=== PATIENT | male | born 1950 | race Caucasian/White ===

== ENCOUNTER 2023-07-16 14:58 | Outpatient (CLI) | payer MEDICARE, SELFPAY ==
[2023-07-16 15:06] VITALS: BMI 25.9
--- NOTE | 2023-07-16 15:06 | PC.NURSE ---
1504-collected labs via venipuncture stick with butterfly needle in left ac.
[2023-07-16 15:22] LABS: Basophils % 0.6 % (0.1-2.0); Eosinophils # 0.3 K/mm3 (0.0-0.4); Eosinophils % 4.7 % (0.1-12.0); Hematocrit 47.4 % (42.0-52.0); Hemoglobin 16.5 g/dL (14.1-18.0); Lymphocytes # 1.6 K/mm3 (0.7-4.5); Lymphocytes % 23.3 % (10-50); Mean Corpuscular HGB Conc 34.9 g/dL (31.8-35.4); Mean Corpuscular Hemoglobin 33.3 pg (27.0-31.2); Mean Corpuscular Volume 95.4 fl (80-94); Mean Platelet Volume 8.2 fl (7.4-10.4); Monocytes # 0.4 K/mm3 (0.1-1.0); Monocytes % 5.5 % (1.7-9.3); Neutrophils # 4.6 K/mm3 (1.8-7.8); Neutrophils % 65.9 % (37.0-80.0); Platelet Count 204 K/mm3 (142-424); Red Blood Count 4.96 M/mm3 (4.60-6.20); Red Cell Distribution Width 13.9 % (11.5-17.5)
[2023-07-16 15:29] LABS: Chloride 103 mmol/L (98-107); Potassium 3.6 mmoL/L (3.5-5.1); Sodium 139 mmol/L (136-145)
[2023-07-16 15:31] LABS: Blood Urea Nitrogen 25 mg/dl (9-20); Creatinine Clearance Estimated 80 mL/min (50-200); Estimated Glomerular Filt Rate 66 ml/min (>60); GFR (African American) 80 ML/MIN (>60)
[2023-07-16 15:32] LABS: Alanine Aminotransferase 30 U/L (12-78); Albumin Level 4.9 g/dl (3.5-5.0); Albumin/Globulin Ratio 1.9 (1.1-1.8); Alkaline Phosphatase 62 U/L (38-126); Anion Gap 9.6 mEq/L (5-15); Aspartate Amino Transferase 37 U/L (17-59); Bilirubin,Total 0.7 mg/dl (0.2-1.3); Calcium 9.7 mg/dl (8.4-10.2); Carbon Dioxide 30 mmol/L (22.0-30.0); Globulin 2.6 g/dL (1.3-3.2); Glucose 148 mg/dl (74-100); Total Protein,Serum 7.5 g/dl (6.3-8.2)
[2023-07-16 15:43] LABS: Lactate Dehydrogenase 227 U/L (313-618)
== END 2023-07-16 15:06 | disposition home or self-care (01) ==
LOC: LAB 15:01 → INF 15:04
PROVIDERS: PCP Counselor Professional; Visit Provider Internal Medicine Medical Oncology
DX: C82.90 Follicular lymphoma, unspecified, unspecified site (principal)
CPT/HCPCS: 36415; 80053; 83615; 85025

== ENCOUNTER 2023-10-15 13:57 | Outpatient (CLI) | payer MEDICARE, SELFPAY ==
[2023-10-15 14:06] VITALS: BMI 25.8
[2023-10-15 14:19] LABS: Basophils # 0.1 K/mm3 (0-0.2); Basophils % 0.9 % (0.1-2.0); Eosinophils # 0.3 K/mm3 (0.0-0.4); Eosinophils % 4.2 % (0.1-12.0); Hematocrit 46.6 % (42.0-52.0); Hemoglobin 15.3 g/dL (14.1-18.0); Lymphocytes # 1.6 K/mm3 (0.7-4.5); Lymphocytes % 20.3 % (10-50); Mean Corpuscular HGB Conc 32.7 g/dL (31.8-35.4); Mean Corpuscular Hemoglobin 32.7 pg (27.0-31.2); Mean Corpuscular Volume 99.9 fl (80-94); Mean Platelet Volume 8.6 fl (7.4-10.4); Monocytes # 0.6 K/mm3 (0.1-1.0); Monocytes % 7.8 % (1.7-9.3); Neutrophils # 5.1 K/mm3 (1.8-7.8); Neutrophils % 66.8 % (37.0-80.0); Platelet Count 193 K/mm3 (142-424); Red Blood Count 4.67 M/mm3 (4.60-6.20); Red Cell Distribution Width 13.8 % (11.5-17.5); White Blood Count 7.6 K/mm3 (4.8-10.8)
[2023-10-15 14:23] LABS: Chloride 104 mmol/L (98-107); Potassium 4.1 mmoL/L (3.5-5.1); Sodium 138 mmol/L (136-145)
[2023-10-15 14:26] LABS: Alanine Aminotransferase 24 U/L (12-78); Albumin Level 4.2 g/dl (3.5-5.0); Albumin/Globulin Ratio 1.9 (1.1-1.8); Alkaline Phosphatase 66 U/L (38-126); Anion Gap 7.1 mEq/L (5-15); Aspartate Amino Transferase 37 U/L (17-59); Bilirubin,Total 0.6 mg/dl (0.2-1.3); Blood Urea Nitrogen 26 mg/dl (9-20); Calcium 10.1 mg/dl (8.4-10.2); Carbon Dioxide 31 mmol/L (22.0-30.0); Creatinine Clearance Estimated 79 mL/min (50-200); Estimated Glomerular Filt Rate 66 ml/min (>60); GFR (African American) 80 ML/MIN (>60); Globulin 2.2 g/dL (1.3-3.2); Glucose 147 mg/dl (74-100); Total Protein,Serum 6.4 g/dl (6.3-8.2)
[2023-10-15 15:35] LABS: Lactate Dehydrogenase 218 U/L (313-618)
== END 2023-10-15 14:10 | disposition home or self-care (01) ==
LOC: INF 13:58
PROVIDERS: PCP Counselor Professional; Visit Provider Internal Medicine Medical Oncology
DX: C82.90 Follicular lymphoma, unspecified, unspecified site (principal)
CPT/HCPCS: 36415; 80053; 83615; 85025

== ENCOUNTER 2024-05-20 13:09 | Outpatient (CLI) | payer MEDICARE, SELFPAY ==
--- NOTE | 2024-05-20 13:24 | PC.NURSE ---
1324-collected labs via venipuncture stick in left ac with butterfly needle; pt to appt.
[2024-05-20 14:46] LABS: Basophils # 0.1 K/mm3 (0-0.2); Basophils % 0.7 % (0.1-2.0); Eosinophils # 0.2 K/mm3 (0.0-0.4); Hematocrit 43.1 % (42.0-52.0); Hemoglobin 14.5 g/dL (14.1-18.0); Lymphocytes # 1.3 K/mm3 (0.7-4.5); Lymphocytes % 17.2 % (10-50); Mean Corpuscular HGB Conc 33.6 g/dL (31.8-35.4); Mean Corpuscular Hemoglobin 31.4 pg (27.0-31.2); Mean Corpuscular Volume 93.5 fl (80-94); Mean Platelet Volume 8.1 fl (7.4-10.4); Monocytes # 0.5 K/mm3 (0.1-1.0); Monocytes % 6.7 % (1.7-9.3); Neutrophils # 5.5 K/mm3 (1.8-7.8); Neutrophils % 72.3 % (37.0-80.0); Platelet Count 272 K/mm3 (142-424); Red Blood Count 4.62 M/mm3 (4.60-6.20); White Blood Count 7.6 K/mm3 (4.8-10.8)
[2024-05-20 14:54] LABS: Alanine Aminotransferase 35 U/L (12-78); Albumin Level 4.1 g/dl (3.5-5.0); Albumin/Globulin Ratio 2.1 (1.1-1.8); Alkaline Phosphatase 64 U/L (38-126); Anion Gap 4.8 mEq/L (5-15); Aspartate Amino Transferase 39 U/L (17-59); Bilirubin,Total 0.6 mg/dl (0.2-1.3); Blood Urea Nitrogen 24 mg/dl (9-20); Calcium 9.8 mg/dl (8.4-10.2); Carbon Dioxide 28 mmol/L (22.0-30.0); Chloride 106 mmol/L (98-107); Estimated Glomerular Filt Rate 66 ml/min (>60); GFR (African American) 80 ML/MIN (>60); Glucose 126 mg/dl (74-100); Lactate Dehydrogenase 267 U/L (313-618); Potassium 3.8 mmoL/L (3.5-5.1); Sodium 135 mmol/L (136-145); Total Protein,Serum 6.1 g/dl (6.3-8.2)
== END 2024-05-20 13:24 | disposition home or self-care (01) ==
LOC: LAB 13:11 → INF 13:13
PROVIDERS: PCP Counselor Professional; Visit Provider Internal Medicine Medical Oncology
DX: C82.90 Follicular lymphoma, unspecified, unspecified site (principal)
CPT/HCPCS: 36415; 80053; 83615; 85025

== ENCOUNTER 2024-11-18 10:13 | Outpatient (CLI) | payer MEDICARE, SELFPAY ==
--- NOTE | 2024-11-18 10:14 | CT_ITS ---
FINAL REPORT TECHNIQUE: Routine axial images were obtained from the lung apices to below the diaphragm following IV contrast administration. Individualized dose reduction techniques using automated exposure control or adjustment of the mA and/or kV according to the patient size were employed. CLINICAL HISTORY: Follicular lymphoma, unspecified COMPARISON: None FINDINGS: Enlarged left axillary lymph nodes are present, more numerous than expected. Some of these lymph nodes are rounded, measuring up to 1.9 cm in size. No mediastinal or hilar adenopathy is identified. No confluent infiltrates are noted, and there is no evidence of pleural or pericardial effusion. There is a small nodule present in the lingula, measuring 5 mm in size, best seen on image #43 of series 9. There is also a nodule in the right middle lobe, also measuring 5 mm in size, best seen on image 59 of series 9. IMPRESSION: Left axillary adenopathy, measuring up to 1.9 cm in size. There are two small 5 mm nodules are present in the lingula and right middle lobe, of uncertain chronicity. Would suggest a 3 to 6-month follow-up CT to evaluate stability. Reviewed, Interpreted and Dictated by Riley Lowe MD Transcribed by Marsha Duque Authenticated and [facility]
--- NOTE | 2024-11-18 10:14 | CT_ITS ---
FINAL REPORT TECHNIQUE: After the administration of oral and intravenous contrast, axial images were obtained through the abdomen and pelvis by computed tomography. The study was performed with techniques to keep radiation dose as low as reasonably achievable, (ALARA). Individual dose reduction techniques using automated exposure control or adjustment of mA and/or kV according to the patient's size were employed. CLINICAL HISTORY: Follicular lymphoma, unspecified COMPARISON: None FINDINGS: CT ABDOMEN PELVIS WITH CONTRAST: Abdomen: The liver parenchyma is homogeneous. The gallbladder is present, and contains a small gallstone. Numerous surgical clips are present in the left upper quadrant. The pancreas and adrenals appear unremarkable. Multiple calcified splenic granulomas are present. The left kidney is mildly atrophic. The aorta is normal in caliber. There is no free fluid or adenopathy. Pelvis: The appendix is not identified. There is a rind of soft tissue surrounding the infrarenal abdominal aorta extending into the pelvis surrounding the iliac vessels. This is best seen on axial images #30 through 54. The urinary bladder is unremarkable. There is no free fluid or adenopathy. IMPRESSION: There is a rind of soft tissue surrounding the infrarenal abdominal aorta, extending inferiorly surrounding the iliac vessels as well. In this patient with a history of lymphoma, this may be secondary to prior treated adenopathy. PET scan is better suited to assess active disease if clinically indicated. Reviewed, Interpreted and Dictated by Riley Lowe MD Transcribed by Marsha Duque Authenticated and [facility]
--- OUTSIDE RECORDS SUMMARY | 2024-11-18 10:15 | XMS_ITS | Clinical Summary ---
Author Organization [facility] , [facility] Address [address] [place] [address] Phone Care Team Providers Care High [employer] Academic Coach Name Role Phone Murali ARELLANO, Armaan Unavailable [phone] Jose COLÓN, Anabel Unavailable [phone] Reason for Visit and Chief Complaint MRI Problems Includes: Problems addressed during this encounter and other active Problems All Visits Onset Date Resolved Date Provider Condition S tatus Lower Back Pain Radiating 02/12/2024 Emma Marcus MD Active Last Documented On 4 12:01PM ; [facility] Plan of Treatment Pending Tests Order Diagnosis Results Due Ordering P rovider Radiology - MRI MRI Lumbar Spine Low back pain, unspecified 02/26/24 Emma Marcus MD Last Documented On 4 7:32AM ; [facility] Assessments Includes: Assessments from this encounter No Assessments Recorded Medical Equipment - Implanted Devices Includes: Current Devices No Medical Equipment Recorded Medications Includes: Medications discussed during this encounter and other current Medications Current Medications (continue as prescribed) hydroCHLOROthiazide 25 MG Oral Tablet 08/21/2023 Pro vider: Diagnosis: Last Documented On 4 1:30PM By Rishi Yepez [facility], [facility] Omeprazole 40 MG Oral Capsule Delayed Release 08/21/19 Provider: Diagnosis: Last Documented On 4 1:30PM By Rishi Baez ; [facility], [facility] Fluticasone Propionate 50 MC G/ACT Nasal Suspension 07/31/2023 Provider: FEDERICO TORIBIO III, MD Diagnosis: Last Documented On 4 1:30PM By Rishi Baez ; [facility], [facility] Ciclopirox 8% External Solution 07/15/2023 Provider: Diagnosis: Last Documented On 4 1:30PM By Rishi [facility], [facility] Medications Administered Includes: Administered Medications from this encounter No Administered Medications Recorded Results Includes: Results discussed during this encounter No Results Recorded For Specified Dates History of Present Illness Includes: History of Present Illness from this encounter No History of Present Illness Recorded Social History No Social History Recorded - Smoking Status Unknown Medical History Includes: Medical History addressed during this encounter No Medical History Recorded Family History Includes: Family History addressed during this encounter No Family History Recorded Review of Systems Includes: Review of Systems from this encounter No Review of Systems Recorded Mental Status Includes: Mental Status from this encounter No Mental Status Recorded Functional Status Includes: Functional Status from this encounter No Functional Status Recorded Physical Exam Includes: Physical Exam from this encounter No Physical Exam Recorded Allergies Includes: Active Allergies No Known Allergies Insurance Includes: Active Insurance Policies Plan Name Member ID Group # Subscriber Relationship Effect scott Dates 1 - [facility] /MEDICARE [id number] Jovanny Rose Self Clinical Notes Includes: Clinical Notes from this encounter No Clinical Notes Recorded
--- OUTSIDE RECORDS SUMMARY | 2024-11-18 10:15 | XMS_ITS | Clinical Summary ---
Author Organization [facility] , [facility] Address [address] [place] [address] Phone Care Team Providers Care Combine Driver Name Role Phone Murali ARELLANO, Armaan Unavailable [phone] Jose COLÓN, Anabel Unavailable [phone] Reason for Visit and Chief Complaint The Chief Complaint is: Right hip pain Problems Includes: Problems addressed during this encounter and other active Problems All Visits Onset Date Resolved Date Provider Condition S tatus Lower Back Pain Radiating 02/12/2024 Emma Marcus MD Active Last Documented On 12:01PM ; [facility] Plan of Treatment - Patient screened for future fall risk: documentation of any fall with injury in past year - Last Documented On 06/12/2024 12:44PM ; [facility] Fall Risk Assessment: This patient has been identified as a fall risk. Balance/gait along with postural blood pressure, vision and home fall hazards have been assessed. Medications have been reviewed, and recommendations made with regard to contributing factors for future falls. Plan of care: Consideration of vitamin D supplementation along with balance and strength training with consideration for formal physical therapy has been discussed with the patient. - Last Documented On 06/12/2024 12:44PM ; [facility] I have reviewed the radiographs and physical exam findings with the patient and his at today's appointment. We discussed that I believe his symptoms are coming from a source within his low back. We will order his an MRI of his lumbar spine and have him follow-up with Dr. Corazon Gee. - Last Documented On 06/12/2024 12:44PM ; [facility] Instructions to patient Intervention and counseling on cessation of tobacco use Last Documented On 4:21PM ; [facility], [facility] Assessments Includes: Assessments from this encounter No Assessments Recorded Instructions Includes: Instructions from this encounter Instructions to patient Intervention and counseling on cessation of tobacco use Last Documented On 4 4:21PM ; [facility] Medical Equipment - Implanted Devices Includes: Current Devices No Medical Equipment Recorded Medications Includes: Medications discussed during this encounter and other current Medications Current Medications (continue as prescribed) hydroCHLOROthiazide 25 MG Oral Tablet 08/21/2023 Pro vider: Diagnosis: Last Documented On 4 1:30PM By Rishi Baez ; [facility] Omeprazole 40 MG Oral Capsule Delayed Release 08/21/19 Provider: Diagnosis: Last Documented On 4 1:30PM By Rishi Baez ; [facility], [facility] Fluticasone Propionate 50 MC G/ACT Nasal Suspension 07/31/2023 Provider: FEDERICO TORIBIO III, MD Diagnosis: Last Documented On 4 1:30PM By Rishi Baez ; [facility] Ciclopirox 8% External Solution 07/15/2023 Provider: Diagnosis: Last Documented On 4 1:30PM By Rishi Baez ; [facility], [facility] Medications Administered Includes: Administered Medications from this encounter No Administered Medications Recorded Results Includes: Results discussed during this encounter No Results Recorded For Specified Dates History of Present Illness Includes: History of Present Illness from this encounter ALIRIO Rose is a 73 year old male. - Allergy list reviewed - Problem list reviewed - Medication list reviewed - Previous history of new onset pain Injury is not work related or an automotive accident - Patient pain level from 1-10: 10 - - Review of medications documented He presents today for evaluation of right posterior hip pain. Over the last several days, he has been remodeling a house and has had significant increase of his activity. He has been up and down on ladders. he denies any direct injury, trauma, or fall contributing to his symptoms. The pain is radiating from the posterior aspect of his hip down to his leg. It is not associated with any numbness or tingling. No recent change in his bowel or bladder patterns. No saddle anesthesia. He has tried taking Tylenol and anti-inflammatories with some mild improvement of his symptoms. He presents today to discuss treatment options. He denies any pain in his groin. He was evaluated back in October with similar symptoms by Dr. Carrino who recommended follow-up with Dr. Mcconnell as he felt a large majority of his symptoms were coming from a source within his low back. He was evaluated by Dr. Mcconnell back in February and all of his radicular pain had resolved. Should his pain return, he did want to order an MRI. He has known degenerative changes of his low back. He does report some back pain at today's appointment. Social History Description Last Updated Tobacco use 06/11/2024 Last Documented On 4 12:44PM ; [facility] Smoking Status Unknown Procedures and Surgical History Includes: Procedures from this encounter Procedures Code Diagnosis Performing Provider Service Location Service Date PELVIS w/ 2-3 VIEW HIP (RIGHT) 64803 Pain in right hip Jag Gage MD [facility] 06/11/2024 Last Documented On 4 2:57PM ; [facility] X-RAY EXAM OF LOWER SPINE 2-3 VIEWS LIMITED 34379 Other intervertebral disc degeneration, lumbar region with d Jag Gage MD [facility] 06/11/2024 Last Documented On 4 2:57PM ; [facility] intervention and counseling on cessation of toba account services analyst use 4000F Last Documented On 4 4:21PM ; [facility] use of tobacco assessment performed 1000F Last Documented On 4 4:21PM ; [facility] patient screened for future fall risk: documentation of any fall with injury in past year 1100F Last Documented On 4 4:21PM ; [facility] review of medications documented 1160F Last Documented On 4 4:21PM ; [facility] Medical History Includes: Medical History addressed during [...] Exam Includes: Physical Exam from this encounter Allergies Includes: Active Allergies No Known Allergies Encounters Encounter Provider Location Date Check-In Time Check-Out Time Diagnosis Walk In New Patient Patti Blanca Craft PA-C [facility] 06/11/20 24 3:36PM 4:41PM Insurance Includes: Active Insurance Policies Plan Name Member ID Group # Subscriber Relationship Effect scott Dates 1 - [facility] /MEDICARE [id number] Jovanny Rose Self Clinical Notes Includes: Clinical Notes from this encounter * Progress note Date Encounter Last Documented by 06/11/2024 Walk In New Patient Last martha ornelas on 06/12/2024; 12:44 PM, Patti Craft PA-C; [facility] Active Problems & Conditions - Lower Back Pain Radiating Chief Complaint The Chief Complaint is: Right hip pain. Referred Here Referred by. History of Present Illness Jovanny Rose is a 73 year old male. - Allergy list reviewed - Problem list reviewed - Medication list reviewed - Previous history of new onset pain Injury is not work related or an automotive accident - Patient pain level from 1-10: 10 - - Review of medications documented He presents today for evaluation of right posterior hip pain. Over the last several days, he has been remodeling a house and has had significant increase of his activity. He has been up and down on ladders. he denies any direct injury, trauma, or fall contributing to his symptoms. The pain is radiating from the posterior aspect of his hip down to his leg. It is not associated with any numbness or tingling. No recent change in his bowel or bladder patterns. No saddle anesthesia. He has tried taking Tylenol and anti-inflammatories with some mild improvement of his symptoms. He presents today to discuss treatment options. He denies any pain in his groin. He was evaluated back in October with similar symptoms by Dr. Carrion who recommended follow-up with Dr. Mcconnell as he felt a large majority of his symptoms were coming from a source within his low back. He was evaluated by Dr. Mcconnell back in February and all of his radicular pain had resolved. Should his pain return, he did want to order an MRI. He has known degenerative changes of his low back. He does report some back pain at today's appointment. Current Medication - Ciclopirox 8% External Solution 30 days, 0 refills - Fluticasone Propionate 50 MCG/ACT Nasal Suspension 60 days, 0 refills - hydroCHLOROthiazide 25 MG Oral Tablet 90 days, 0 refills - Omeprazole 40 MG Oral Capsule Delayed Release 90 days, 0 refills Social History Tobacco use: Tobacco use. Allergies - No Known Allergies Physical Findings He is well-dressed and well-groomed. He has normal mood and affect. He has a stooped gait. Leg lengths are equal. The skin is intact. No increased redness or heat. No effusion. No bony deformity. There is no tenderness about the hips. No tenderness over the SI joints. No tenderness over the lumbar spine. Right hip is limited internal and external rotation without pain. Normal motor and sensory. Normal neurovascular status. SLR: Positive on the right side negative on the left. Tests Three-view radiographs of the right hip show some narrowing throughout the joint space. The joint spaces overall well-preserved. No acute osseous abnormality. No acute interval change compared to radiographs taken in October 2023. Three-view radiographs of the lumbar spine show multilevel degenerative disc disease And degenerative scoliosis. No acute osseous abnormality or interval change compared to radiographs taken in February 2024. Therapy - Intervention and counseling on cessation of tobacco use. Counseling/Education - Tobacco non-user - Use of tobacco assessment performed Plan - Patient screened for future fall risk: documentation of any fall with injury in past year Fall Risk Assessment: This patient has been identified as a fall risk. Balance/gait along with postural blood pressure, vision and home fall hazards have been assessed. Medications have been reviewed, and recommendations made with regard to contributing factors for future falls. Plan of care: Consideration of vitamin D supplementation along with balance and strength training with consideration for formal physical therapy has been discussed with the patient. I have reviewed the radiographs and physical exam findings with the patient and his at today's appointment. We discussed that I believe his symptoms are coming from a source within his low back. We will order his an MRI of his lumbar spine and have him follow-up with Dr. Corazon Gee. Notes This dictation was done with voice recognition software and may contain errors and omissions. Practice Management Use of tobacco assessment performed and patient screened for future fall risk documentation of any fall with injury in past year Review of medications documented. Care Team - Anabel Garcia PA-C
--- OUTSIDE RECORDS SUMMARY | 2024-11-18 10:15 | XMS_ITS ---
Care Plan - [facility], [facility] Created on: November 18, 2024 Rose Jovanny Go : 1950 Sex: Male Author Organization [facility] , [facility] Address [address] [place] [address] Phone Care Team Providers Care [employer] [place] Name Role Phone Murali ARELLANO, Armaan Unavailable [phone] Jose COLÓN, Anabel Unavailable [phone]
--- OUTSIDE RECORDS SUMMARY | 2024-11-18 10:16 | XMS_ITS | Clinical Summary ---
Author Organization [facility] Address [address] [place] [address] Phone Care Team Providers Care Machine Repair Person Name Role Phone Murali ARELLANO, Armaan Unavailable [phone] Jose COLÓN, Anabel Unavailable [phone] Reason for Visit and Chief Complaint The Chief Complaint is: Lumbar radiculopathy Problems Includes: Problems addressed during this encounter and other active Problems Current Visit Onset Date Resolved Date Provider Conditio n Status Lower Back Pain Radiating 02/12/2024 Emma Marcus MD Active Last Documented On 12:01PM ; [facility] Plan of Treatment - Patient screened for future fall risk: documentation of any fall with injury in past year - Last Documented On 02/24/2024 7:32AM ; [facility] Pending Tests Order Diagnosis Results Due Ordering P rovider Radiology - MRI MRI Lumbar Spine Low back pain, unspecified 02/26/24 Emma Marcus MD Last Documented On 4 7:32AM ; [facility] Instructions to patient Intervention and counseling on cessation of tobacco use Last Documented On 4 11:49AM ; [facility] Lose weight Last Documented On 4 11:49AM ; [facility] Assessments Includes: Assessments from this encounter Findings - Overweight - Last Documented On 02/24/2024 7:32AM ; [facility] This is a 73-year-old man with mild adult degenerative scoliosis and resolved right lumbar radiculopathy. - Last Documented On 02/24/2024 7:32AM ; [facility], [facility] It was nice meeting ald. I told him for now we can manage him expectantly but if his symptoms return he can call and we can order an MRI scan for him before his next follow up. - Last Documented On 02/24/2024 7:32AM ; [facility] Instructions Includes: Instructions from this encounter Instructions to patient Intervention and counseling on cessation of tobacco use Last Documented On 4 11:49AM ; [facility] Lose weight Last Documented On 4 11:49AM ; [facility] Medical Equipment - Implanted Devices Includes: Current Devices No Medical Equipment Recorded Medications Includes: Medications discussed during this encounter and other current Medications Current Medications (continue as prescribed) hydroCHLOROthiazide 25 MG Oral Tablet 08/21/2023 Pro vider: Diagnosis: Last Documented On 4 1:30PM By Rishi Baez ; [facility] Omeprazole 40 MG Oral Capsule Delayed Release 08/21/19 Provider: Diagnosis: Last Documented On 4 1:30PM By Rishi Baez ; [facility] Fluticasone Propionate 50 MC G/ACT Nasal Suspension 07/31/2023 Provider: FEDERICO TORIBIO III, MD Diagnosis: Last Documented On 4 1:30PM By Rishi Baez ; [facility] Ciclopirox 8% External Solution 07/15/2023 Provider: Diagnosis: Last Documented On 4 1:30PM By Rishi Baez ; [facility] Medications Administered Includes: Administered Medications from this encounter No Administered Medications Recorded Vital Signs Includes: Vital Signs from this encounter Vital Name 02/12/2024 11:49A Height (in) 74 Weight (lb) 185 Body Mass Index 23.8 Body Surface Area 2.1 Note: pw Last Documented: On 02/12/2024 11:51A M ; [facility] Results Includes: Results discussed during this encounter No Results Recorded For Specified Dates History of Present Illness Includes: History of Present Illness from this encounter ALIRIO Rose is a 73 year old male. - Allergy list reviewed - Problem list reviewed - Medication list reviewed - Previous history of new onset pain 08/2023 Injury is not work related or an automotive accident - Sharp pain Symptoms - Stabbing - Pain is occasional (25% of the time) - Patient pain level from 1-10: 7 - History of Home Exercise - No previous treatment. - - Review of medications documented Medications used for this condition: This is a 73-year-old male seeing me for the 1st time today. It was an in-house referral from Armaan Rm. He said that couple of months ago he would bad symptoms of right lower extremity radiculopathy but they have essentially resolved at this time. Now he is pretty much hopeful to just to establish care in the event that his symptoms return. Social History Description Last Updated Tobacco use 06/11/2024 Last Documented On 4 11:48AM ; [facility], [facility] Caffeine use 02/12/2024 Last Documented On 4 7:32AM ; [facility], [facility] Exercising regularly 02/12/2024 Last Documented On 4 7:32AM ; [facility], [facility] No recent change in diet 02/12/2024 Last Documented On 4 7:32AM ; [facility], [facility] Not using alcohol 02/12/2024 Last Documented On 4 7:32AM ; [facility], [facility] Not using drugs 02/12/2024 Last Documented On 4 7:32AM ; [facility], [facility] Yes, current smoker. 02/12/2024 Last Documented On 4 7:32AM ; [facility], [facility] Smoking Status Unknown Procedures and Surgical History Includes: Procedures from this encounter Procedures Code Diagnosis Performing Provider Service Location Service Date X-RAY EXAM OF LOWER SPINE 4-5 VIEWS 53590 Radiculopathy, lumbar region, Sacroiliitis, not elsewhere classified Emma Marcus MD [facility] [place] 02/12/2024 Last Documented On 4 10:58AM ; [facility], [facility] use of tobacco assessment performed 1000F Last Documented On 4 11:48AM ; [facility], [facility] review of medications documented 1160F Last Documented On 4 11:48AM ; [facility], [facility] an X-ray was performed 02/12/2024 Joseph @ [facility] [id number] Last Documented On 4 11:49AM ; [facility] Surgical History Last Updated History of hernia repair 02/12/2024 Last Documented On 4 7:32AM ; [facility] Medical History Includes: Medical History addressed during this encounter Description Last Updated History of arthritis 02/12/2024 Last Documented On 4 7:32AM ; [facility] History of History of Cancer 02/12/2024 Last Documented On 4 7:32AM ; [facility] Family History Includes: Family History addressed during this encounter Description Last Updated Family history of cancer 02/12/2024 Last Documented On 4 7:32AM ; [facility] Family history of heart disease 02/12/20 24 Last Documented On 4 7:32AM ; [facility] Review of Systems Includes: Review of Systems from this encounter Systemic: Not feeling tired, no recent weight loss, and no recent weight gain. Head: No headache and no sinus pain. Eyes: No vision problems, no Cataracts, no Glasses/Contacts, and no Glaucoma. Otolaryngeal: No hearing loss and no tinnitus. Cardiovascular: No chest pain or discomfort and no palpitations. Hypertension. No High Cholesterol. Pulmonary: No daytime asthma symptoms and no chronic cough. No wheezing. Gastrointestinal: No heartburn and no abdominal pain. No Indigestion, no Peptic Ulcer, no GI Stomach Bleed, and no Ulcers. Acid Reflux. Endocrine: No hot flashes, no muscle weakness, no Diabetes, no Hypothyroid, and no Hyperthyroid. Hematologic: No easy bleeding, no tendency for easy bruising, and no Anemia. Musculoskeletal: Arthritis and lower back pain. No soft tissue swelling. Pain localized to one or more joints. Neurological: No dizziness, no convulsions, and no numbness. Psychological: No anxiety, no emotional lability, no depression, and no insomnia. Not crying for no reason. Skin: No dry skin. No Ulcers, no Scars, and no rash. Allergic and Immunologic: No complaint of seasonal allergic reaction. Mental Status Includes: Mental Status from this encounter Description No anxiety Functional Status Includes: Functional Status from this encounter No Functional Status Recorded Physical Exam Includes: Physical Exam from this encounter Allergies Includes: Active Allergies No Known Allergies Encounters Encounter Provider Location Date Check-In Time Check-Out Time Diagnosis IN HOUSE REFERRAL Emma robbins MD [facility] 02/12/20 24 10:57AM 12:18PM Overweight Insurance Includes: Active Insurance Policies Plan Name Member ID Group # Subscriber Relationship Effect scott Dates 1 - [facility] /MEDICARE [id number] Jovanny Rose Self Clinical Notes Includes: Clinical Notes from this encounter * Progress note Date Encounter Last Documented by 02/12/2024 IN HOUSE REFERRAL Last documente d on 02/24/2024; 7:32 AM, Emma Marcsu MD; [facility], [facility] Active Problems & Conditions - Lower Back Pain Radiating Chief Complaint The Chief Complaint is: Lumbar radiculopathy. Referred Here Referred by [facility]- Dr. Armaan Carrion. History of Present Illness Jovanny Rose is a 73 year old male. - Allergy list reviewed - Problem list reviewed - Medication list reviewed - Previous history of new onset pain 08/2023 Injury is not work related or an automotive accident - Sharp pain Symptoms - Stabbing - Pain is occasional (25% of the time) - Patient pain level from 1-10: 7 - History of Home Exercise - No previous treatment. - - Review of medications documented Medications used for this condition: This is a 73-year-old male seeing me for the 1st time today. It was an in-house referral from Armaan Rm. He said that couple of months ago he would bad symptoms of right lower extremity radiculopathy but they have essentially resolved at this time. Now he is pretty much hopeful to just to establish care in the event that his symptoms return. Current Medication - Ciclopirox 8% External Solution 30 days, 0 refills - Fluticasone Propionate 50 MCG/ACT Nasal Suspension 60 days, 0 refills - hydroCHLOROthiazide 25 MG Oral Tablet 90 days, 0 refills - Omeprazole 40 MG Oral Capsule Delayed Release 90 days, 0 refills Past Medical/Surgical History Diagnoses: History of Cancer. Arthritis Surgical: - Hernia repair Social History Yes, current smoker. Current diet: No recent change in diet. Caffeine use: Caffeine use. Tobacco use: Tobacco use. Alcohol: Not using alcohol. Drug Use: Not using drugs. Habits: Exercising regularly. Allergies - No Known Allergies Family History Cancer Heart disease Review Of Systems Systemic: Not feeling tired, no recent weight loss, and no recent weight gain. Head: No headache and no sinus pain. Eyes: No vision problems, no Cataracts, no Glasses/Contacts, and no Glaucoma. Otolaryngeal: No hearing loss and no tinnitus. Cardiovascular: No chest pain or discomfort and no palpitations. Hypertension. No High Cholesterol. Pulmonary: No daytime asthma symptoms and no chronic cough. No wheezing. Gastrointestinal: No heartburn and no abdominal pain. No Indigestion, no Peptic Ulcer, no GI Stomach Bleed, and no Ulcers. Acid Reflux. Endocrine: No hot flashes, no muscle weakness, no Diabetes, no Hypothyroid, and no Hyperthyroid. Hematologic: No easy bleeding, no tendency for easy bruising, and no Anemia. Musculoskeletal: Arthritis and lower back pain. No soft tissue swelling. Pain localized to one or more joints. Neurological: No dizziness, no convulsions, and no numbness. Psychological: No anxiety, no emotional lability, no depression, and no insomnia. Not crying for no reason. Skin: No dry skin. No Ulcers, no Scars, and no rash. Allergic and Immunologic: No complaint of seasonal allergic reaction. Physical Findings - Vitals taken 02/12/2024 11:49 am pw Height 74 in Weight 185 lbs Body Mass Index 23.8 kg/m2 Body Surface Area 2.1 m2 General: Alert and Oriented A&Ox3 Focused Musculoskeletal Exam of the Spine: Patient is able to ambulate in the room without assistive device No focal tenderness to palpation in the Lumbar Spine Motor HF KE AD EHL GS Right 5/5 5/5 5/5 5/5 5/5 Left 5/5 5/5 5/5 5/5 5/5 Sensation L2 L3 L4 L5 S1 Right 2 2 2 2 2 Left 2 2 2 2 2 Patellar reflex is 2+ bilaterally Achilles reflex is 2+ bilaterally No ankle clonus Symmetric, palpable posterior tibialis pulse bilaterally Tests 4v lumbar spine xrays AP, Lateral, Flexion and Extension views of the lumbar spine were obtained today There is some mild adult degenerative scoliosis but no obvious fracture or spondylolisthesis. User Defined 5 Fall Risk Assessment: This patient has been [...] therapy has been discussed with the patient. This is a 73-year-old man with mild adult degenerative scoliosis and resolved right lumbar radiculopathy. It was nice meeting ald. I told him for now we can manage him expectantly but if his symptoms return he can call and we can order an MRI scan for him before his next follow up. Assessment - Overweight Previous Tests Imaging: X-Ray: An X-ray was performed 02/12/2024 Joseph @ [facility]. Counseling/Education - Tobacco use - Use of tobacco assessment performed - Intervention and counseling on cessation of tobacco use - Lose weight Plan StartCited - Low back pain, unspecified Radiology/MRI: MRI Lumbar Spine EndCited - Patient screened for future fall risk: documentation of any fall with injury in past year Practice Management Use of tobacco assessment performed Review of medications documented. Care Team - Anabel Garcia PA-C Notes This dictation was done with voice recognition software and may contain errors and omissions.
--- OUTSIDE RECORDS SUMMARY | 2024-11-18 10:16 | XMS_ITS ---
Author Organization [facility] , [facility] Address [address] [place] [address] Phone Care Team Providers Care Ornamental Plaster Sticker Name Role Phone Murali ARELLANO, Armaan Unavailable [phone] Jose COLÓN, Anabel Unavailable [phone] Problems Includes: Active, inactive, and resolved Problems All Visits Onset Date Resolved Date Provider Condition S tatus Lower Back Pain Radiating 02/12/2024 Emma Marcus MD Active Last Documented On 4 12:01PM ; [facility] Plan of Treatment Findings Encounter Date Patient screened for future fall risk: documentation of any fall with injury in past year Walk In New Patient with Patti Craft PA-C 06/11/2024 Last Documented On 4 12:44PM ; [facility] Patient screened for future fall risk: documentation of any fall with injury in past year IN HOUSE REFERRAL with Emma Marcus MD 02/12/2024 Last Documented On 4 7:32AM ; [facility] Pending Tests Order Diagnosis Results Due Ordering P rovider Radiology - MRI MRI Lumbar Spine Low back pain, unspecified 02/26/24 Emma Marcus MD Last Documented On 4 7:32AM ; [facility] Instructions to patient Intervention and counseling on cessation of tobacco use Last Documented On 4 4:21PM ; [facility] Intervention and counseling on cessation of tobacco use Last Documented On 4 11:49AM ; [facility] Lose weight Last Documented On 4 11:49AM ; [facility] Intervention and counseling on cessation of tobacco use Last Documented On 4 1:34PM ; [facility], [facility] Assessments Includes: Assessments for all patient encounters Findings Encounter Date Overweight IN HOUSE REFERRAL with Emma Nelson MD 02/12/2024 Last Documented On 4 7:32AM ; [facility], [facility] Instructions Includes: Instructions for all patient encounters Instructions to patient Intervention and counseling on cessation of tobacco use Last Documented On 4 4:21PM ; [facility], [facility] Intervention and counseling on cessation of tobacco use Last Documented On 4 11:49AM ; [facility] Lose weight Last Documented On 4 11:49AM ; [facility], [facility] Intervention and counseling on cessation of tobacco use Last Documented On 4 1:34PM ; [facility], [facility] Medical Equipment - Implanted Devices Includes: Current and historical Devices No Medical Equipment Recorded Medications Includes: Current and historical Medications Current Medications (continue as prescribed) hydroCHLOROthiazide 25 MG Oral Tablet 08/21/2023 Pro vider: Diagnosis: Last Documented On 4 1:30PM By Rishi Baez ; [facility], [facility] Omeprazole 40 MG Oral Capsule Delayed Release 08/21/19 24 Provider: Diagnosis: Last Documented On 4 1:30PM By Rishi Baez ; [facility], [facility] Fluticasone Propionate 50 MC G/ACT Nasal Suspension 07/31/2023 Provider: FEDERICO TORIBIO III, MD Diagnosis: Last Documented On 4 1:30PM By Rishi Baez ; [facility], [facility] Ciclopirox 8% External Solution 07/15/2023 Provider: Diagnosis: Last Documented On 4 1:30PM By Rishi Baez ; [facility], [facility] Past Medications on file Fluconazole 150 MG Oral Tablet 09/16/2023 - 09/18/2023 Provider: Diagnosis: Last Documented On 4 11:59AM By Erin Mercado ; [facility], [facility] levoFLOXacin 500 MG Oral Tablet 09/16/2023 - Provider: Diagnosis: Last Documented On 4 11:59AM By Erin Mercado ; [facility], [facility] Amoxicillin-Pot Clavulanate 875-125 MG Oral Tablet 09/02/2023 - 10/03/2023 Provider: Diagnosis: Last Documented On 4 12:00PM By Erin Mercado ; [facility] Medications Administered Includes: Administered Medications in patient's chart No Administered Medications Recorded Vital Signs Includes: Vital Signs from 11/19/2023 through 11/18/2024 Vital Name 02/12/2024 11:49A Height (in) 74 Weight (lb) 185 Body Mass Index 23.8 Body Surface Area 2.1 Note: pw Last Documented: On 02/12/2024 11:51A M ; [facility] Results Includes: Results from 11/19/2023 through 11/18/2024 No Results Recorded For Specified Dates History of Present Illness History of Present Illness not supported for this document type No History of Present Illness Recorded Social History Description Last Updated Tobacco use 06/11/2024 Last Documented On 4 12:44PM ; [facility] Caffeine use 02/12/2024 Last Documented On 4 7:32AM ; [facility] Exercising regularly 02/12/2024 Last Documented On 4 7:32AM ; [facility] No recent change in diet 02/12/2024 Last Documented On 4 7:32AM ; [facility] Not using alcohol 02/12/2024 Last Documented On 4 7:32AM ; [facility] Not using drugs 02/12/2024 Last Documented On 4 7:32AM ; [facility] Yes, current smoker. 02/12/2024 Last Documented On 4 7:32AM ; [facility] Smoking Status Unknown Procedures and Surgical History Includes: Procedures from 11/19/2023 through 11/18/2024 Procedures Code Diagnosis Performing Provider Service Location Service Date PELVIS w/ 2-3 VIEW HIP (RIGHT) 24605 Pain in right hip Jag Gage MD [facility] 06/11/2024 Last Documented On 4 2:57PM ; [facility] X-RAY EXAM OF LOWER SPINE 2-3 VIEWS LIMITED 27895 Other intervertebral disc degeneration, lumbar region with d Jag Gage MD [facility] 06/11/2024 Last Documented On 4 2:57PM ; [facility] X-RAY EXAM OF LOWER SPINE 4-5 VIEWS 35884 Radiculopathy, lumbar region, Sacroiliitis, not elsewhere classified Emma Marcus MD [facility] 02/12/2024 Last Documented On 4 10:58AM ; [facility] Surgical History Last Updated History of hernia repair 02/12/2024 Last Documented On 4 7:32AM ; [facility] Medical History Includes: Medical History in patient's chart Description Last Updated History of arthritis 02/12/2024 Last Documented On 4 7:32AM ; [facility] History of History of Cancer 02/12/2024 Last Documented On 4 7:32AM ; [facility] Family History Includes: Family History in patient's chart Description Last Updated Family history of cancer 02/12/2024 Last Documented On 4 7:32AM ; [facility] Family history of heart disease 02/12/20 Last Documented On 4 7:32AM ; [facility] Review of Systems Review of Systems not supported for this document type No Review of Systems Recorded Mental Status No Mental Status Recorded Functional Status No Functional Status Recorded Physical Exam Physical Exam not supported for this document type No Physical Exam Recorded Allergies Includes: Active, inactive, and resolved Allergies No Known Allergies Encounters Includes: Encounters from 11/19/2023 through 11/18/2024 Encounter Provider Location Date Check-In Time Check-Out Time Diagnosis Walk In New Patient Patti Craft PA-C [facility] 06/11/20 3:36PM 4:41PM IN HOUSE REFERRAL Emma robbins MD [facility] 02/12/20 24 10:57AM 12:18PM Overweight Insurance Includes: Active Insurance Policies Plan Name Member ID Group # Subscriber Relationship Effect scott Dates 1 - [facility] /MEDICARE [id number] Jovanny Rose Self Clinical Notes Includes: Signed Clinical Notes starting from 07/19/2022 * Progress note Date Encounter Last Documented by 06/11/2024 Walk In New Patient Last martha ornelas on 06/12/2024; 12:44 PM, Patti Craft PA-C; [facility], [facility] Active Problems & Conditions - Lower [...] documented. Care Team - Anabel Garcia PA-C * Progress note Date Encounter Last Documented by 02/12/2024 IN HOUSE REFERRAL Last documente d on 02/24/2024; 7:32 AM, Emma Marcus MD; [facility], [facility] Active Problems & Conditions - Lower Back Pain Radiating Chief Complaint The Chief Complaint is: Lumbar radiculopathy. Referred Here Referred by R- Dr. Armaan Carrion. History of Present Illness [...] right lumbar radiculopathy. It was nice meeting erika. I told him for now we can manage him expectantly but if his symptoms return he can call and we can order an MRI scan for him before his next follow up. Assessment - Overweight Previous Tests Imaging: X-Ray: An X-ray was performed 02/12/2024 Joseph @ [facility]. Counseling/Education - Tobacco use - Use [...]
--- OUTSIDE RECORDS SUMMARY | 2024-11-18 10:16 | XMS_ITS | Clinical Summary ---
Author Organization [facility] , [facility] Address [address] [place] [address] Phone Care Team Providers Care Valve Tester Name Role Phone Murali ARELLANO, Armaan Unavailable [phone] Jose COLÓN, Anabel Unavailable [phone] Reason for Visit and Chief Complaint The Chief Complaint is: Right hip pain Problems Includes: Problems addressed during this encounter and other active Problems All Visits Onset Date Resolved Date Provider Condition S tatus Lower Back Pain Radiating 02/12/2024 Emma Marcus MD Active Last Documented On 12:01PM ; [facility], [facility] Plan of Treatment Fall Risk Assessment: This patient has been [...] with the patient. - Last Documented On 11/01/2023 8:29AM ; [facility] Instructions to patient Intervention and counseling on cessation of tobacco use Last Documented On 1:34PM ; [facility], [facility] Assessments Includes: Assessments from this encounter Findings Mild right hip osteoarthritis - Last Documented On 11/01/2023 8:29AM ; [facility] Right SI joint pain - Last Documented On 11/01/2023 8:29AM ; [facility], [facility] Today we discussed he is good preservation of his hip joint space. Pain is likely from his SI joint or low back. We will refer him to physical therapy and if not improving we will refer him for further evaluation to [facility]. Happy to see him back if his pain returns in the hip. - Last Documented On 11/01/2023 8:29AM ; [facility] Instructions Includes: Instructions from this encounter Instructions to patient Intervention and counseling on cessation of tobacco use Last Documented On 4 1:34PM ; [facility] Medical Equipment - Implanted Devices Includes: Current Devices No Medical Equipment Recorded Medications Includes: Medications discussed during this encounter and other current Medications Current Medications (continue as prescribed) hydroCHLOROthiazide 25 MG Oral Tablet 08/21/2023 Pro vider: Diagnosis: Last Documented On 4 1:30PM By Rishi Baez ; [facility] Omeprazole 40 MG Oral Capsule Delayed Release 08/21/19 Provider: Diagnosis: Last Documented On 4 1:30PM By Rishi Baez ; [facility] Fluticasone Propionate 50 MC G/ACT Nasal Suspension 07/31/2023 Provider: FEDERICO TORIBIO III, MD Diagnosis: Last Documented On 4 1:30PM By Rishi Baez ; [facility] Ciclopirox 8% External Solution 07/15/2023 Provider: Diagnosis: Last Documented On 4 1:30PM By Rishi Baez ; [facility], [facility] Medications Administered Includes: Administered Medications from this encounter No Administered Medications Recorded Vital Signs Includes: Vital Signs from this encounter Vital Name 10/28/2023 01:34P Height (in) 74 Weight (lb) 196 Body Mass Index 25.2 Body Surface Area 2.2 Note: tm Last Documented: On 10/28/2023 1:34PM ; [facility] Results Includes: Results discussed during this encounter No Results Recorded For Specified Dates History of Present Illness Includes: History of Present Illness from this encounter HPI Jovanny Rose is a 72 year old male. - Allergy list reviewed - Problem list reviewed - Medication list reviewed Presents for evaluation of right hip pain. The pain is located in his low back offset to the right. Occasionally he does have some groin pain. This has been going on for past few months. Tried Tylenol anti-inflammatories. Not done physical therapy. He has a history of a low back injury many years ago with multiple bulging disc. Social History Description Last Updated Tobacco use 10/28/2023 Last Documented On 4 8:29AM ; [facility] Smoking Status Unknown Procedures and Surgical History Includes: Procedures from this encounter Procedures Code Diagnosis Performing Provider Service L ocation Service Date intervention and counseling on cessation of tobacco use 4000F Last Documented On 4 1:34PM ; [facility] use of tobacco assessment performed 1000F Last Documented On 4 1:34PM ; [facility] patient screened for future fall risk: documentation of any fall with injury in past year 1100F Last Documented On 4 1:34PM ; [facility] review of medications documented 1160F Last Documented On 4 1:34PM ; [facility] Medical History Includes: Medical History [...] Location Date Check-In Time Check-Out Time Diagnosis Physician Specified Armaan Carrion MD [facility] 10/28/19 24 1:04PM 1:41PM Insurance Includes: Active Insurance Policies Plan Name Member ID Group # Subscriber Relationship Effect scott Dates 1 - [facility] /MEDICARE [id number] Jovanny Rose Self Clinical Notes Includes: Clinical Notes from this encounter * Progress note Date Encounter Last Documented by 10/28/2023 Physician Specified Last documen ceci on 11/01/2023; 8:29 AM, Armaan Carrion MD; [facility] Chief Complaint The Chief Complaint is: Right hip pain. Referred Here Referred by. History of Present Illness Jovanny Rose is a 72 year old male. - Allergy list reviewed - Problem list reviewed - Medication list reviewed Presents for evaluation of right hip pain. The pain is located in his low back offset to the right. Occasionally he does have some groin pain. This has been going on for past few months. Tried Tylenol anti-inflammatories. Not done physical therapy. He has a history of a low back injury many years ago with multiple bulging disc. Current Medication - Amoxicillin-Pot Clavulanate 875-125 MG Oral Tablet 10 days, 0 refills - Ciclopirox 8% External Solution 30 days, 0 refills - Fluconazole 150 MG Oral Tablet 2 days, 0 refills - Fluticasone Propionate 50 MCG/ACT Nasal Suspension 60 days, 0 refills - hydroCHLOROthiazide 25 MG Oral Tablet 90 days, 0 refills - levoFLOXacin 500 MG Oral Tablet 10 days, 0 refills - Omeprazole 40 MG Oral Capsule Delayed Release 90 days, 0 refills Social History Tobacco use: Tobacco use. Allergies - No Known Allergies Physical Findings - Vitals taken 10/28/2023 01:34 pm tm Height 74 in Weight 196 lbs Body Mass Index 25.2 kg/m2 Body Surface Area 2.2 m2 General: The patient is alert and oriented in no distress. Respiratory: Nonlabored breathing in the exam room Cardiac: Extremities are warm and well-perfused. Skin: Skin appears clean dry and intact. Musculoskeletal exam: Patient walks with an slightly antalgic gait. Exam of the BILATERAL KNEES shows painless range of motion from 0-120 degrees. No tenderness to palpation along the medial/lateral joint lines. Exam of the right hip demonstrates some pain with hip flexion internal external rotation. Negative straight leg raise. Nontender to palpation over the greater trochanter. He is tender to palpation over his lumbar spine and right SI joint Neurovascular exam of the bilateral lower extremities demonstrates strength to be 5/5 in hip flexion, knee flexion and extension, ankle dorsiflexion/plantarflexion, and great toe dorsiflexion/plantarflexion. Pulses are palpable dorsalis pedis bilaterally AP pelvis two-view obtained personally reviewed today of the right hip demonstrate preservation of joint space. There are moderate arthritic changes. Therapy - Intervention and counseling on cessation of tobacco use. Plan Fall Risk Assessment: This patient has been [...] therapy has been discussed with the patient. Notes This dictation was done with voice recognition software and may contain errors and omissions. Practice Management Use of tobacco assessment performed and patient screened for future fall risk documentation of any fall with injury in past year Review of medications documented. User Defined 5 Mild right hip osteoarthritis Right SI joint pain Today we discussed he is good preservation of his hip joint space. Pain is likely from his SI joint or low back. We will refer him to physical therapy and if not improving we will refer him for further evaluation to [facility]. Happy to see him back if his pain returns in the hip.
[2024-11-18 10:41] LABS: Blood Urea Nitrogen 31 mg/dl (9-20); Estimated Glomerular Filt Rate 59 ml/min (>60); GFR (African American) 72 ML/MIN (>60)
[2024-11-18] MEDS: IOPAMIDOL-370 (76%);100ML BOTTLE 75 ML IV (11:29)
[2024-11-18] MEDS: SODIUM CHLORIDE 0.9% 10ML SYR (RAD ONLY) 10 ML IV (11:29)
[2024-11-18 14:39] LABS: Alanine Aminotransferase 27 U/L (12-78); Albumin/Globulin Ratio 1.4 (1.1-1.8); Alkaline Phosphatase 32 U/L (38-126); Anion Gap 15.2 mEq/L (5-15); Aspartate Amino Transferase 49 U/L (17-59); Bilirubin,Total 0.9 mg/dl (0.2-1.3); Blood Urea Nitrogen 30 mg/dl (9-20); Calcium 9.5 mg/dl (8.4-10.2); Carbon Dioxide 26 mmol/L (22.0-30.0); Chloride 100 mmol/L (98-107); Estimated Glomerular Filt Rate 59 ml/min (>60); GFR (African American) 72 ML/MIN (>60); Globulin 2.9 g/dL (1.3-3.2); Glucose 85 mg/dl (74-100); Lactate Dehydrogenase 389 U/L (313-618); Potassium 4.2 mmoL/L (3.5-5.1); Sodium 137 mmol/L (136-145); Total Protein,Serum 6.9 g/dl (6.3-8.2)
[2024-11-18 14:52] LABS: Basophils % 0.4 % (0.1-2.0); Eosinophils # 0.2 K/mm3 (0.0-0.4); Eosinophils % 2.9 % (0.1-12.0); Hematocrit 43.7 % (42.0-52.0); Hemoglobin 14.3 g/dL (14.1-18.0); Lymphocytes # 1.6 K/mm3 (0.7-4.5); Lymphocytes % 20.9 % (10-50); Mean Corpuscular HGB Conc 32.7 g/dL (31.8-35.4); Mean Corpuscular Hemoglobin 29.3 pg (27.0-31.2); Mean Corpuscular Volume 89.5 fl (80-94); Mean Platelet Volume 9.6 fl (7.4-10.4); Monocytes # 0.6 K/mm3 (0.1-1.0); Monocytes % 8.4 % (1.7-9.3); Neutrophils # 5.1 K/mm3 (1.8-7.8); Neutrophils % 66.9 % (37.0-80.0); Nucleated Red Blood Cells # 0 10^3/uL; Nucleated Red Blood Cells % 0 %; Platelet Count 240 K/mm3 (142-424); Red Blood Count 4.88 M/mm3 (4.60-6.20); Red Cell Distribution Width 15.1 % (11.5-17.5); Red Cell Distribution Width-SD 49.7 fL; White Blood Count 7.6 K/mm3 (4.8-10.8)
[2024-11-18 16:55] LABS: Alanine Aminotransferase 25 U/L (12-78); Albumin Level 3.9 g/dl (3.5-5.0); Albumin/Globulin Ratio 1.6 (1.1-1.8); Alkaline Phosphatase 60 U/L (38-126); Anion Gap 12.8 mEq/L (5-15); Aspartate Amino Transferase 26 U/L (17-59); Bilirubin,Total 0.6 mg/dl (0.2-1.3); Blood Urea Nitrogen 28 mg/dl (9-20); Calcium 9.4 mg/dl (8.4-10.2); Carbon Dioxide 28 mmol/L (22.0-30.0); Chloride 100 mmol/L (98-107); Estimated Glomerular Filt Rate 66 ml/min (>60); GFR (African American) 79 ML/MIN (>60); Globulin 2.4 g/dL (1.3-3.2); Glucose 131 mg/dl (74-100); Lactate Dehydrogenase 224 U/L (313-618); Potassium 3.8 mmoL/L (3.5-5.1); Sodium 137 mmol/L (136-145); Total Protein,Serum 6.3 g/dl (6.3-8.2)
== END 2024-11-18 23:59 | disposition home or self-care (01) ==
LOC: RAD 10:14
PROVIDERS: PCP Counselor Professional; Visit Provider Internal Medicine Medical Oncology
DX: C82.05 Follicular lymphoma grade I, lymph nodes of inguinal region and lower limb (principal)
CPT/HCPCS: 36415; 71260; 74177; 80053; 82565; 83615; 84520; 85025; Q9967

== ENCOUNTER 2025-05-19 13:14 | Outpatient (CLI) | payer MEDICARE, SELFPAY ==
--- OUTSIDE RECORDS SUMMARY | 2025-05-19 13:16 | XMS_ITS | Clinical Summary ---
Author Organization [employer] ([place], [place], [place], [place]) Address [address] [place] [address] Care Team Providers Care Cardiovascular Or Nurse Name Role Phone Power Arreguin MD Unavailable Nataliya Montana PA-C Unavailable [phone] Estelle Navarro RN Unavailable Unavailable Breann Dalton RN Unavailable Unavailable Anabel Garcia APRN Primary Care Provider Allergies Active Allergy Reactions Criticality Noted Date Comments Azithromycin 08/04/2012 Tetanus Vaccines And Toxoid Hives High 11/14/19 19 Medications amLODIPine-shannan zepriL (LOTREL) 10-20 mg per capsule Take 1 capsule by mouth daily. 05/16/2022 Active omeprazole (PriLOSEC) 40 MG capsule Take 40 mg by mouth daily. 05/16/2022 Active fenofibrate (TRIGLIDE,LOFIB RA) 160 MG tablet Take 160 mg by mouth daily. 05/16/2022 Active hydroCHLOROthia zide (HYDRODIURIL) 25 MG tablet Take 25 mg by mouth daily. 05/16/2022 Active dicyclomine (BENTYL) 20 mg tablet Take 20 mg by mouth 3 (three) times daily as needed. 06/18/2022 Active famotidine (PEPCID) 20 MG tablet Take 20 mg by mouth daily. 05/31/2022 Active hydroCHLOROthia zide (MICROZIDE) 12.5 mg capsule Take 12.5 mg by mouth daily. 08/17/2022 Active omeprazole (PriLOSEC) 20 MG capsule Take 40 mg by mouth. Active Family History Medical History Relation Name Comments Cancer Mother Relation Name Status Comments Mother Social History Tobacco Use Types Packs/Day Years Used Date Smoking Tobacco: Every Day Cigarettes 0.5 55.8 Started: 08/05/1969 Comments:smokes 3 cigs/day Alcohol Use Standard Drinks/Week Comments Never 0 (1 standard drink = 0.6 oz pur e alcohol) Social Connection and Isolation Panel Answer Date Recorded In a typical week, how many times do you talk on the phone with family, friends, or neighbors? More than three times a week 10/03/2022 How often do you get togethe r with friends or relatives? More than three times a week 10/03/2022 How often do you attend [facility] or denominational services? More than 4 times per year 10/03/2022 Do you belong to any clubs o r organizations such as jain groups, unions, fraternal or athletic groups, or school groups? No 10/03/2022 Attends Club or Organization Meetings Not on keyur e 10/03/2022 Are you , , di vorced, , never , or living with a partner? 10/03/2022 Overall Financial Resource Strain (CARDIA) Answe r Date Recorded How hard is it for you to pa y for the very basics like food, housing, medical care, and heating? Not hard at all 10/03/2022 Exercise Vital Sign Answer Date Recorde d On average, how many days pe r week do you engage in moderate to strenuous exercise (like a brisk walk)? 7 days 10/03/2022 On average, how many minutes do you engage in exercise at this level? 60 min 10/03/2022 Hunger Vital Sign Answer Date Recorded Within the past 12 months, y ou worried that your food would run out before you got the money to buy more. Never true 10/04/19 23 Within the past 12 months, t he food you bought just didn't last and you didn't have money to get more. Never true 10/03/2022 PRAPARE - Transportation Answer Date Re corded In the past 12 months, has l ack of transportation kept you from medical appointments or from getting medications? No 08/2022 In the past 12 months, has l ack of transportation kept you from meetings, work, or from getting things needed for daily living? No 10/03/2022 Family and Community Support Answer Murphy e Recorded Help with Day to Day Activities Not on file 08/15/2023 Feeling Lonely or Isolated Not on file 08/15 Educational Attainment Answer Date Cramelo rded Speak language other than Thai at home Not on file 08/15/2023 Want help with school or training Not on file 08/15/2023 Substance Use Answer Date Recorded Used prescription meds for non-medical reasons N ot on file 08/15/2023 Used illegal drugs past 12 months Not on file 08/15/2023 Sex and Gender Information Value Date Recorded Sex Assigned at Not on file Legal Sex Male 5:26 PM CDT Gender Identity Not on file Sexual Orientation Not on file Last Filed Vital Signs Vital Sign Reading Time Taken Comments Blood Pressure 116/58 01/10/2023 2:09 PM EDT Pulse 52 01/10/2023 2:09 PM EDT Temperature 37 C (98.6 F) 01/10/2023 2:09 PM EDT Respiratory Rate 16 01/10/2023 2:09 PM EDT Oxygen Saturation 98% 01/10/2023 2:09 PM EDT Inhaled Oxygen Concentration - - Weight 89.9 kg (198 lb 3.2 oz) 01/10/2023 2:09 P M EDT Height 185 cm (6' 0.84 ) 01/10/2023 2:09 PM EDT Body Mass Index 26.27 01/10/2023 2:09 PM EDT Plan of Treatment Health Maintenance Due Date Last Done Comments Medicare Initial AWV G0438 CT Colonography 1950 Colonoscopy 1950 Colorectal Cancer Screening 1950 FOBT/FIT 1950 Fit-DNA (Cologuard) 1950 Sigmoidoscopy 1950 COVID-19 VACCINE (#1) 10/28/1956 Depression Screening (12+) 1963 Hepatitis C Screening 10/28/1969 DTAP/TDAP/TD VACCINES (1 - Tdap) 10/28/1970 Shingles Vaccine (Zoster) (1 of 2) 10/28/1970 Pneumococcal 50+ years (2 of 2 - PCV) 04/17/2020 Tobacco Cessation Counseling and Screening (12+) 01/1001/10/2023 Falls Risk Screening 08/05/2024 Influenza Vaccine (#1) 2025 Respiratory Syncytial Virus (RSV) Adult or (1 - 1-dose 75+ series) 10/28/2026 Insurance [facility] MEDICARE ADVANTAGE Care Teams Cardiovascular Or Nurse Relationship Specialty Start Date End Date Anabel Garcia APRN [address], [facility] [place] [address] PCP - General Family Medicine 01/10/23 Power Arreguin MD [address] [facility] [address], [place] [address] Medical Oncologist Hematology and Oncology 10/02/22 Nataliya Montana, PA-C [address] [facility] [address] [place] [address] Physician Camera Person Oncology 10/02/22 Estelle Navarro, RN Nurse Navigator Oncology 11/29/22 Breann Dalton, RN Registered Nurse Oncology 11/29/22
--- OUTSIDE RECORDS SUMMARY | 2025-05-19 13:16 | XMS_ITS | Encounter Summary ---
Author Organization [employer] ([place], [place], [place], [place]) Address [address] [place] [address] Care Team Providers Care Urology Teacher Name Role Phone Power Arreguin MD Unavailable Nataliya Montana PA-C Unavailable [phone] Estelle Navarro RN Unavailable Unavailable Breann Dalton RN Unavailable Unavailable Anabel Garcia APRN Primary Care Provider [phone] Encounter Details Date Type Department Care Team (Late st Contact Info) Description 04/28/2019 Transcribed Document [facility] [address] [place] [address] ProviderGene MD [address] [place] [address] Social History Tobacco Use Types Packs/Day Years Used Date Smoking Tobacco: Never Assessed Sex and Gender Information Value Date Recorded Sex Assigned at Not on file Legal Sex Male 5:26 PM CDT Gender Identity Not on file Sexual Orientation Not on file documented as of this encounter Miscellaneous Notes * Cerner Conversion Note - Gene Lane MD - 04/28/2019 9:53 AM CDT Patient: MEME ROSE Age: 68 years Sex: Male : 1950 Associated Diagnoses: None Author: ALEX MARTINEZ MD-RAD Procedure Performed: Mesenteric arteriogram Procedural MD:Lisa Sleeper Cutter: _None Sedation: concious Findings: no abnormality Complications: No significant EBL: Minimal Specimen(s) Removed: _ N/A Full report to follow. Electronically signed by [employer] Spencer Conversion Quality Assurance Supervisor Ch[employer] Cerner at 11/20/2022 2:13 PM CDT documented in this encounter Plan of Treatment Not on file documented as of this encounter Visit Diagnoses Not on filedocumented in this encounter Care Teams Urology Teacher Relationship Specialty Start Date End Date Anabel Garcia APRN [address], [facility] [place] [address] PCP - General Family Medicine 01/10/23 Power Arreguin MD [address] [facility] [address] [place] [address] Medical Oncologist Hematology and Oncology 10/02/22 Nataliya Montana, PA-C [address] [facility] [address] [place] [address] Physician Sleeper Cutter Oncology 10/02/22 Estelle Navarro, RN Nurse Navigator Oncology 11/29/22 Breann Dalton, RN Registered Nurse Oncology 11/29/22 documented as of this encounter
--- OUTSIDE RECORDS SUMMARY | 2025-05-19 13:16 | XMS_ITS | Encounter Summary ---
Author Organization [employer] ([place], [place], [place], [place]) Address [address] [place] [address] Care Team Providers Care Sap Architect Name Role Phone Power Arreguin MD Unavailable Nataliya Montana PA-C Unavailable Estelle Navarro RN Unavailable Unavailable Breann Dalton RN Unavailable Unavailable Anabel Garcia APRN Primary Care Provider Encounter Details Date Type Department Care Team (Late st Contact Info) Description 05/14/2019 Transcribed Document [facility] [address] [place] [address] ProviderGene MD [address] [place] [address] Social History Tobacco Use Types Packs/Day Years Used Date Smoking Tobacco: Never Assessed Sex and Gender Information Value Date Recorded Sex Assigned at Not on file Legal Sex Male 5:26 PM CDT Gender Identity Not on file Sexual Orientation Not on file documented as of this encounter Miscellaneous Notes * Cerner Conversion Note - Gene Lane MD - 05/14/2019 10:01 AM CDT UM Authorization Entered On: 05/14/2019 10:02 EDT Performed On: 05/14/2019 10:01 EDT by LILIA VIVEROS RN Primary Insurance Authorization Authorization and Policy Numbers : Insurance 1 Health Plan: [facility] MEDICARE ADVANTAGE Policy Number: [id number] Authorization Number: [id number] Authorization Comments-Primary : Informed Marcy of incorrect status called in. Patient only has OP order on chart. She cancelled IP admission. Historical Authorization Comments-Primary : No Authorization Comments Found LILIA VIVEROS, RN - 05/14/2019 10:01 EDT documented in this encounter Plan of Treatment Not on file documented as of this encounter Visit Diagnoses Not on filedocumented in this encounter Care Teams Sap Architect Relationship Specialty Start Date End Date Anabel Garcia APRN [facility], [facility] [place] [address] PCP - General Family Medicine 01/10/23 Power Arreguin MD [address] [address] Medical Oncologist Hematology and Oncology 10/02/22 Nataliya Montana, PA-C [address] [place] [address] [address] [place] [address] Physician Cloth Picker Oncology 10/02/22 Estelle Navarro, RN Nurse Navigator Oncology 11/29/22 Breann Dalton, RN Registered Nurse Oncology 11/29/22 documented as of this encounter
--- OUTSIDE RECORDS SUMMARY | 2025-05-19 13:16 | XMS_ITS | Encounter Summary ---
Author Organization [facility] ([place], [place], [place], [place]) Address [address] [place] [address] Care Team Providers Care Splash Line Operator Name Role Phone Power Arreguin MD Unavailable Nataliya Montana PA-C Unavailable Estelle Navarro RN Unavailable Unavailable Breann Dalton RN Unavailable Unavailable Anabel Garcia APRN Primary Care Provider [phone] Encounter Details Date Type Department Care Team (Late st Contact Info) Description 04/28/2019 Transcribed Document [facility] Family Medicine [address] [place] [address] ProviderGene MD [address] [place] [id number] Social History Tobacco Use Types Packs/Day Years Used Date Smoking Tobacco: Never Assessed Sex and Gender Information Value Date Recorded Sex Assigned at Not on file Legal Sex Male 5:26 PM CDT Gender Identity Not on file Sexual Orientation Not on file documented as of this encounter Miscellaneous Notes * Cerner Conversion Note - Gene Lane MD - 04/28/2019 1:01 PM CDT [facility] [place] [address] MEME ROSE :1950 Visit Time:04/28/2019 Your Visit Summary Your Care Team Admitting Physician - Jane GONZALEZ MD-SUR Attending Physician - Jane GONZALEZ MD-NAVIN Primary Care Physician - ANABEL GARCIA (REF), RESEARCH PROFESSOR OF BIOSTATISTICS-MARSHALK Referring Physician - Jane GONZALEZ MD-SUR WARNER, J SLOAN, MD-SUR WILSON, DARLENE (REF), RESEARCH PROFESSOR OF BIOSTATISTICS-UNK Your Diagnosis Aneurysm of other specified arteries, Aneurysm of other specified arteries Discharge Vitals Heart Rate (Monitored) 50 Respiratory Rate 13 Blood Pressure 110/68 What to do next Instructions From Your Care Team Diet after Discharge: Resume usual diet as tolerated Activity after Discharge: Rest and relax today, No strenuous activity Lifting Restrictions: No lifting over 10 pounds for 1 week. Driving after Discharge: Do not drive for 24 hours Showering/Bathing: You may remove the dressing in 24 hours and shower., No tub bathing, soaking or swimming for 3-5 days. Medications: No changes to your current home medications. Notify Provider of: any chest pain, shortness of breath, bleeding, hematoma, or signs of infection. If any uncontrolled bleeding occurs,apply pressure and call 911. Follow-Up Appointments Follow Up with Jane GONZALEZ MD-SUR When 05/07/2019 11:00 AM EDT Where: [address] [facility] [address] [address] Medications What How Much When Instructions Next Dose flax (Flax Oil oral capsule) 2 caps Oral Every Day today amlodipine-benazepril (amLODIPine-benazepril 10 mg-20 mg oral capsule) 1 Capsule(s) Oral Every Day tomorrow ascorbic acid/ chondroitin/ glucosa/ domingo (Glucosamine Chondroitin) 1500mg/1,103mg Oral Every Day today beta-carotene (Beta Carotene) 7,500 Microgram(s) Oral Every Day today cholecalciferol (Vitamin D3) 2,000 International Units Oral Every Day today cyanocobalamin (Vitamin B-12) 500 Microgram(s) Oral Every Day today fenofibrate (Triglide 160 mg oral tablet) 1 Tablet(s) Oral Every Day tomorrow folic acid (folic acid 0.8 mg oral tablet) 1 Tablet(s) Oral Every Day today hydroCHLOROthiazide (hydrochlorothiazide) 25 Milligram(s) Oral Every Day tomorrow levocetirizine (levocetirizine 5 mg oral tablet) 1 Tablet(s) Oral Every Evening today multivitamin 1 tablet Oral Every Day today Non Formulary (Non Formulary med) Calcium OTC one tablet daily today Non Formulary (Non Formulary med) Tumeric and black pepper extract 600mg/ 5mg once daily today Non Formulary (Non Formulary med) Potassium OTC 99mg one tablet daily today omeprazole 40 Milligram(s) Oral Every Day tomorrow pyridoxine (Vitamin B6) 100 Milligram(s) Oral Every Day today zinc gluconate (zinc (as gluconate) 50 mg oral tablet) 1 Tablet(s) Oral Every Day today Take your medications faithfully. Do NOT skip medication. Do NOT stop taking medications without the direction of a physician. Carry a list of your medications with you at all times, and take this medication list with you to your first follow up visit. Report any side effects. Avoid herbal remedies unless discussed with your physician. As part of your treatment plan, your physician may have prescribed a limited course of a controlled substance. This medication may be given to help people with moderate or severe pain or for other medical conditions, but there are risks involved with treatment. Common side effects may include nausea, constipation, drowsiness, sweating, itching, dry mouth, and rash. More serious side effects may include cognitive and motor impairment, like problems with thinking, concentrating, alertness, and movement (e.g. slowed reflexes), and driving and operating heavy machinery can be dangerous. It is important for you to talk to your physician if you have these side effects or questions. These controlled substances can produce physical dependence and be habit-forming if taken for an extended period of time, which means that the body has gotten used to them and may experience withdrawal symptoms if they are abruptly stopped. Withdrawal symptoms can include runny nose, sweating, goose bumps, diarrhea, abdominal cramping, rapid heartbeat, difficulty sleeping, and nervousness. Please dispose of unused and medications per your retail pharmacy guidance. Allergies No Known Allergies Immunizations This Visit No Immunizations Found Education Materials Moderate Conscious Sedation, Adult, Care After These instructions provide you with information about caring for yourself after your procedure. Your health care provider may also give you more specific instructions. Your treatment has been planned according to current medical practices, but problems sometimes occur. Call your health care provider if you have any problems or questions after your procedure. What can I expect after the procedure? After your procedure, it is common: ??? To feel sleepy for several hours. ??? To feel clumsy and have poor balance for several hours. ??? To have poor judgment for several hours. ??? To vomit if you eat too soon. Follow these instructions at home: For at least 24 hours after the procedure: ??? Do not: ? Participate in activities where you could fall or become injured. ? Drive. ? Use heavy machinery. ? Drink alcohol. ? Take sleeping pills or medicines that cause drowsiness. ? Make important decisions or sign legal documents. ? Take care of children on your own. ??? Rest. Eating and drinking ??? Follow the diet recommended by your health care provider. ??? If you vomit: ? Drink water, juice, or soup when you can drink without vomiting. ? Make sure you have little or no nausea before eating solid foods. General instructions ??? Have a responsible adult stay with you until you are awake and alert. ??? Take qyiz-wcp-shvpeod and prescription medicines only as told by your health care provider. ??? If you smoke, do not smoke without supervision. ??? Keep all follow-up visits as told by your health care provider. This is important. Contact a health care provider if: ??? You keep feeling nauseous or you keep vomiting. ??? You feel light-headed. ??? You develop a rash. ??? You have a fever. Get help right away if: ??? You have trouble breathing. This information is not intended to replace advice given to you by your health care provider. Make sure you discuss any questions you have with your health care provider. Document Released: 05/12/2014 Document Revised: 12/24/2016 Document Reviewed: 11/10/2016 [employer] Patient Education ?? 2019 [employer] Emergency Awareness and Preventative Care STROKE is an EMERGENCY Every Minute Counts Act FAST and Check for these signs: FACE Does the face look uneven? ARM Does one arm drift down? SPEECH Does their speech sound strange? TIME Call at any sign of stroke Stroke Risk Factors Atrial Fibrillation (irregular heartbeat) Diabetes Family history of stroke Heart Disease Heavy alcohol use High Blood Pressure High Cholesterol Physical inactivity and obesity Smoking Cigarette Smoking The facts are clear, cigarette smoking will shorten your life. Smoking can cause many illnesses along the way. As a healthcare provider, we recommend that you stop smoking. Assistance with quitting is available by contacting 7-857-FFYBNOW. This is a free resource providing counseling, support, and referral. Or you may contact your personal physician. [place] Suicide Prevention Lifeline: The National Suicide Prevention Lifeline is a national network of local crisis centers that provides free and confidential emotional support to people in suicidal crisis or emotional distress 24 hours a day, 7 days a week. Don't Wait! Stop a Heart Attack Before it Starts What is a heart attack? A heart attack is damage or to a part of the heart from severely decreased or lack of blood flow to the heart. Over time, arteries can become narrow from the buildup of fat and cholesterol, which is called plaque. The plaque can rupture causing a blood clot to form. When the blood clot forms, the artery can become severely narrowed or completely blocked, causing a heart attack. Heart attack is the leading cause of in the [place]. 85% of muscle damage occurs within the first 2 hours. Delay in the recognition of heart attack symptoms increases the chances of . Know the early symptoms of a heart attack: Nausea Feeling of fullness in chest Jaw Pain Pain that travels down one or both arms Fatigue/being tired Anxiety Back Pain Chest pressure, squeezing, or discomfort Shortness of breath Sweating, or a cold sweat Feeling of impending doom There are unusual signs of a heart attack, too! Women, the elderly, and diabetics may present with atypical symptoms: Fainting/dizziness Weakness Confusion Risk Factors for a Heart Attack Some heart disease risk factors, such as age and family history, cannot be changed. Others, like smoking and lack of exercise, can be changed. Smoking High Cholesterol High Blood Pressure Family History Obesity Age Gender (Males are at higher risk) Lack of Exercise Diabetes Diet Stress Excessive Alcohol Intake If you or someone you know is experiencing the signs and symptoms of a heart attack, DON???T DELAY. Call immediately and seek help. If someone collapses, perform CPR! Do not attempt to drive if you are having symptoms of heart attack. Hands-Only CPR Why Hands-Only CPR? Hands-Only CPR has been shown to be as effective as conventional CPR for cardiac arrests that occur outside of a hospital. Survival depends on immediately receiving CPR from someone nearby. How do you perform Hands-Only CPR? There are two easy steps: Call 9-1-1 if you see a teen or adult collapse Push hard and fast in the center of the chest at a beat of 100 beats per minute. Save a life! 4 WAYS TO GET AHEAD OF SEPSIS SEPSIS is a MEDICAL EMERGENCY. Time matters! Infections put you and your family at risk for a life-threatening condition called sepsis. Sepsis is the body's extreme response to an infection. It is life-threatening, and without timely treatment, sepsis can rapidly lead to tissue damage, organ failure, and . Sepsis happens when an infection you already have-in your skin, lungs, urinary tract or somewhere else-triggers a chain reaction throughout your body. 1 PREVENT INFECTIONS Take good care of chronic conditions. Talk to your doctor about getting the recommended vaccines. 2 PRACTICE GOOD HYGIENE Wash your hands frequently. Keep cuts or open sores clean and covered until they are healed. 3 KNOW THE SYMPTOMS Confusion or disorientation Shortness of breath High heart rate Fever, shivering, or feeling very cold Extreme pain or discomfort Clammy or sweaty skin 4 ACT FAST Get medical care IMMEDIATELY if you suspect sepsis or if you have an infection that is not getting better or is getting worse. To learn more about sepsis and how to prevent infections, visit www.cdc.gov/sepsis. Test Results Laboratory or Other Results This Visit (last charted value for your 04/28/2019 visit) Coagulation 04/28/2019 7:11 AM INR: 1.0 -- Normal range between ( 0.9 and 1.1 ) PTT: 28.6 Second(s) -- Normal range between ( 22.0 and 32.0 ) PT: 11.0 Second(s) -- Normal range between ( 9.6 and 12.0 ) Patient Name:MEME ROSE I have received and understand this information and was given the opportunity to ask questions. Patient/Technical Developer Name: Patient/Technical Developer Signature: Relationship to Patient: Clinician/Hospital Technical Developer Signature: Date: Electronically signed by Christiano Spencer Conversion In Home Sales Representative Cerner at 11/20/2022 2:06 PM CDT documented in this encounter Plan of Treatment Not on file documented as of this encounter Visit Diagnoses Not on filedocumented in this encounter Care Teams Splash Line Operator Relationship Specialty Start Date End Date Anabel Garcia APRN [address] [facility] [address] PCP - General Family Medicine 01/10/23 Power Arreguin MD [address] [facility] [address] [place] [address] Medical Oncologist Hematology and Oncology 10/02/22 Nataliya Montana, PADonya [address] [facility] [address] [place] [address] Physician Videotape Operator Oncology 10/02/22 Estelle Navarro, RN Nurse Navigator Oncology 11/29/22 Breann Dalton, CATIA Registered Nurse Oncology 11/29/22 documented as of this encounter
--- OUTSIDE RECORDS SUMMARY | 2025-05-19 13:16 | XMS_ITS | Encounter Summary ---
Author Organization [facility] ([place], [place], [place], [place]) Address [address] [place] [address] Care Team Providers Care Precipitate Washer Name Role Phone Power Arreguin MD Unavailable Nataliya Montana PA-C Unavailable Estelle Navarro RN Unavailable Unavailable Breann Dalton RN Unavailable Unavailable Anabel Garcia APRN Primary Care Provider Encounter Details Date Type Department Care Team (Late st Contact Info) Description 05/14/2019 Transcribed Document [facility] Radiology [address] [phone] Alexi Sim MD [facility] [place] [address] Social History Tobacco Use Types Packs/Day Years Used Date Smoking Tobacco: Never Assessed Sex and Gender Information Value Date Recorded Sex Assigned at Not on file Legal Sex Male 5:26 PM CDT Gender Identity Not on file Sexual Orientation Not on file documented as of this encounter Miscellaneous Notes * Cerner Conversion Note - Alexi Sim MD - 05/14/2019 5:44 PM EDT DATE OF PROCEDURE:05/13/2019 PREOPERATIVE DIAGNOSIS(ES): 4 cm splenic artery aneurysm. POSTOPERATIVE DIAGNOSIS(ES): 4 cm splenic artery aneurysm. PROCEDURE: 1. Left radial arterial access under ultrasound guidance. 2. Left upper extremity arteriogram. 3. Abdominal aortogram. 4. Selective mesenteric angiogram. 5. Coil embolization splenic artery aneurysm. SURGEON: Attending: Alexi Sim MD INDICATION: Patient is a 68-year-old male with findings of an enlarging splenic artery aneurysm with history of lymphoma. He has had attempted coil embolization unsuccessfully by Radiology. He has been offered a radial access attempt with coil embolization explained. Risks and benefits of surgery have been explained and understood by the patient who agreed to proceed. OPERATIVE FINDINGS: 1. Left upper extremity angiogram demonstrating three-vessel forearm runoff. 2. Abdominal aortogram demonstrating widely patent celiac and superior mesenteric artery with large splenic artery aneurysm with very tortuous splenic artery. 3. Successful coil embolization of splenic artery with multiple detachable coils (Azur 6 x 20 cm, Azur 12 x 38, Azur 8 x 20, Azur 20 x 50 cm, Azur 20 x 50 cm, Azur 20 x 50 cm, Azur 12 x 38 cm, Azur 8 x 20 cm). 4. Successful coil embolization of splenic artery aneurysm with multiple coils as listed above. OPERATIVE DESCRIPTION: Patient was taken back to the operating room, placed in supine position on operating table. Following IV sedation, administration of IV antibiotics, left wrist was widely prepped and draped in standard sterile fashion. Time-out was taken. Access was achieved successfully within the left radial artery. A 6-Indian sheath was placed and systemic heparinization was performed. Left upper extremity angiogram was performed demonstrating three-vessel forearm runoff. Diameter of the radial artery was adequate for catheter manipulation. Wire was able to traverse down the descending thoracic aorta. Catheter was advanced and abdominal aortography was performed. This demonstrated a patent celiac and superior mesenteric artery. Celiac artery had a very large and tortuous splenic artery aneurysm. This was cannulated with our Jose radial catheter. Due to the tortuosity stenting, this was not an option. A 0.022 micro catheter was advanced within the distal aspect of the splenic artery. This was distal to the splenic aneurysm. Detachable coils were used. Initially, a 6 x 20 cm Azur detachable was used. This was a very high flow channel and multiple other coils were used starting distal and extending to the proximal splenic aneurysm. This includes the 12 x 38 detachable, next an 8 x 20 HydroCoil, and a 20 x 50 HydroCoil as well as an additional 20 x 50 hydro, total of three 20 x 50 HydroCoils were placed within the splenic aneurysm itself. Proximal arterial inflow was also treated with a 12 x 38 and an 8 x 20 detachable coil. Attempts to advance an Amplatzer plug was unfortunately unsuccessful. The Amplatzer plug would not advance within our 6-Indian sheath that was placed within the splenic artery. This was fully removed at this point. Catheter was also placed within the splenic artery after completion of coil embolization. There was still very sluggish flow present and about a total of 200 units of thrombin was injected. This was unable to completely obstruct the flow, which may have been due to the systemic heparinization. Sheath was removed at this point. Radial band was applied. Patient was taken back to Recovery in stable condition. No complications. Alexi Sim M.D. Dict: 05/14/2019 16:44:00 Trans: 05/14/2019 22:21:35 CC1: Alexi Sim M.D. documented in this encounter Plan of Treatment Not on file documented as of this encounter Visit Diagnoses Not on filedocumented in this encounter Care Teams Precipitate Washer Relationship Specialty Start Date End Date Anabel Garcia APRN [facility]. [address] [place] [address] PCP - General Family Medicine 01/10/23 Power Arreguin MD [address] [facility] [address] [place] [address] Medical Oncologist Hematology and Oncology 10/02/22 Nataliya Montana PA-C [address] [facility] [address] [place] [address] Physician Sales Developer Oncology 10/02/22 Estelle Navarro, CATIA Nurse Navigator Oncology 11/29/22 Breann Dalton, CATIA Registered Nurse Oncology 11/29/22 documented as of this encounter
--- OUTSIDE RECORDS SUMMARY | 2025-05-19 13:16 | XMS_ITS | Referral Summary ---
Author Organization [employer] ([place], [place], [place], [place]) Address [address] [place] [address] Care Team Providers Care Pick And Shovel Man Name Role Phone Power Arreguin MD Unavailable Nataliya Montana PA-C Unavailable [phone] Estelle Navarro RN Unavailable Unavailable Breann [...] capsule Take 40 mg by mouth. Active Social History Tobacco Use Types Packs/Day Years [...] week 10/03/2022 How often do you attend chur or rastafarian services? More than 4 times per year 10/03/2022 Do you belong to any clubs o r organizations such as anabaptist groups, unions, fraternal or athletic groups, or [...] on file 08/15 Educational Attainment Answer Date Carmelo rded Speak language other than Greek at home Not on file 08/15/2023 Want [...] 01/10/2023 2:09 PM EDT Plan of Treatment Not on file Insurance [facility] ADVANTAGE Care Teams Pick And Shovel Man Relationship Specialty Start Date End Date Anabel Garcia APRN [address], [place] [address] PCP - General Family Medicine 01/10/23 Power Arreguin MD [address] [address] Medical Oncologist Hematology and Oncology 10/02/22 Nataliya Montana, PA-C [address] [facility] [address] [place] [address] Physician Block Breaker Operator Oncology 10/02/22 Estelle Navarro, RN Nurse Navigator Oncology 11/29/22 Breann Dalton, RN Registered Nurse Oncology 11/29/22
--- OUTSIDE RECORDS SUMMARY | 2025-05-19 13:16 | XMS_ITS | Encounter Summary ---
Author Organization [email or web address] ([place], [place], [place], [place]) Address [address] [place] [address] Care Team Providers Care Bibliographic Services Specialist Name Role Phone Power Arreguin MD Unavailable Nataliya Montana PA-C Unavailable Estelle Navarro RN Unavailable Unavailable Breann Dalton RN Unavailable Unavailable Anabel Garcia APRN Primary Care Provider Encounter Details Date Type Department Care Team (Late st Contact Info) Description 05/13/2019 Transcribed Document [facility] Family Medicine [address] [place] [id number] ProviderGene MD [address] [place] [id number] Social History Tobacco Use Types Packs/Day Years Used Date Smoking Tobacco: Never Assessed Sex and Gender Information Value Date Recorded Sex Assigned at Not on file Legal Sex Male 5:26 PM CDT Gender Identity Not on file Sexual Orientation Not on file documented as of this encounter Miscellaneous Notes * Cerner Conversion Note - Gene Lane MD - 05/13/2019 11:39 AM CDT [facility] Main OR IntraOp Summary Primary Physician: MICHAEL ALANIZ MD-SUR Finalized Date/Time: 05/23/19 14:03:31 Pt. Name: MEME GARCIA NICHOLAS ChackoO.B./Sex: 1950 Male Med Rec #: [id number] Physician: MICHAEL ALANIZ MD-SUR Financial #: [id number] Pt. Type: O Room/Bed: [facility]/ Admit/Disch: 05/13/19 09:34:00 - 05/13/19 16:30:00 Institution: [facility] IntraOp Case Attendance Entry 1 Entry 2 Entry 3 Case Attendee MICHAEL ALANIZ MD-SUR BURBERRY, KEITH, MD-ANS CALDWELL, FUNMI Barillas EYEWEAR CONSULTANT Role Performed Surgeon/Proceduralist, Anesthesiologist of EYEWEAR CONSULTANT/Nurse Track Fitter First Record Time In 05/13/19 11:22:00 05/13/19 11:22:00 05/13/19 11:22:00 Time Out 05/13/19 13:10:00 05/13/19 13:10:00 05/13/19 13:10:00 Procedure Aortogram Abdominal Aortogram Abdominal Aortogram Abdominal with Runoff with Runoff with Runoff Other Attendee Superficial Wound Closed By: Last Modified By: Patricio Gomez RN Willoughby, Toni, RN Willoughby, Toni, RN 05/13/19 13:09:05 05/13/19 13:09:05 05/13/19 13:09:05 Entry 4 Entry 5 Entry 6 Case Attendee Patricio Gomez RN Grimes, Jennifer, [place]One Murphy, Karen, Anthony Pref Card Builder Role Performed Human Resources Consultant, First Human Resources Consultant, Second Manufacturing Maintenance Technician Time In 05/13/19 11:22:00 05/13/19 11:22:00 05/13/19 11:22:00 Time Out 05/13/19 13:10:00 05/13/19 13:10:00 05/13/19 12:51:00 Procedure Aortogram Abdominal Aortogram Abdominal Aortogram Abdominal with Runoff with Runoff with Runoff Other Attendee Superficial Wound Closed By: Last Modified By: Patricio Gomez RN Willoughby, Toni, RN Willoughby, Toni, RN 05/13/19 13:09:05 05/13/19 13:09:05 05/13/19 12:53:15 Entry 7 Entry 8 Entry 9 Case Attendee Ketty Jones, OTHER, ATTENDEE OTHER, ATTENDEE #1 Angiography Tech Role Performed Manufacturing Maintenance Technician Vendor Vendor Time In 05/13/19 11:22:00 05/13/19 11:22:00 05/13/19 11:22:00 Time Out 05/13/19 13:10:00 05/13/19 13:10:00 05/13/19 13:10:00 Procedure Aortogram Abdominal Aortogram Abdominal Aortogram Abdominal with Runoff with Runoff with Runoff Other Attendee CRYSTAL HOPE Superficial Wound Closed By: Last Modified By: Patricio Gomez RN Willoughby, Toni, RN Willoughby, Toni, RN 05/13/19 13:09:05 05/13/19 12:04:39 05/13/19 12:04:39 [facility] IntraOp Case Attendance Audit 05/13/19 13:09:05 Brake Repairer Bus: [id number] Modifier: [id number] <+> Time Out 1 <*> Procedure Aortogram Abdominal with Runoff 2 <+> Time Out 2 <*> Procedure Aortogram Abdominal with Runoff 3 <+> Time Out 3 <*> Procedure Aortogram Abdominal with Runoff 4 <+> Time Out 4 <*> Procedure Aortogram Abdominal with Runoff 5 <+> Time Out 5 <*> Procedure Aortogram Abdominal with Runoff 6 <*> Procedure Aortogram Abdominal with Runoff 7 <+> Time Out 7 <*> Procedure Aortogram Abdominal with Runoff 8 <+> Time Out 8 <*> Procedure Aortogram Abdominal with Runoff 9 <+> Time Out 9 <*> Procedure Aortogram Abdominal with Runoff 05/13/19 12:53:15 Brake Repairer Bus: [id number] Modifier: [id number] <*> Procedure Aortogram Abdominal with Runoff 2 <*> Procedure Aortogram Abdominal with Runoff 3 <*> Procedure Aortogram Abdominal with Runoff 4 <*> Procedure Aortogram Abdominal with Runoff 5 <*> Procedure Aortogram Abdominal with Runoff 6 <+> Time Out 6 <*> Procedure Aortogram Abdominal with Runoff 7 <*> Procedure Aortogram Abdominal with Runoff 8 <+> Time In 8 <*> Procedure Aortogram Abdominal with Runoff 9 <+> Time In 9 <*> Procedure Aortogram Abdominal with Runoff 05/13/19 12:04:39 Brake Repairer Bus: [id number] Modifier: [id number] <*> Procedure Aortogram Abdominal with Runoff 2 <+> Time In 2 <*> Procedure Aortogram Abdominal with Runoff 3 <+> Time In 3 <*> Procedure Aortogram Abdominal with Runoff 4 <+> Time In 4 <*> Procedure Aortogram Abdominal with Runoff 5 <+> Time In 5 <*> Procedure Aortogram Abdominal with Runoff 6 <+> Time In 6 <*> Procedure Aortogram Abdominal with Runoff 7 <+> Time In 7 <*> Procedure Aortogram Abdominal with Runoff <+> 8 Case Attendee <+> 8 Role Performed <+> 8 Procedure <+> 8 Other Attendee <+> 9 Case Attendee <+> 9 Role Performed <+> 9 Procedure <+> 9 Other Attendee 05/13/19 11:41:34 Brake Repairer Bus: [id number] Modifier: [id number] <+> 1 Procedure <+> 2 Case Attendee <+> 2 Role Performed <+> 2 Procedure <+> 3 Case Attendee <+> 3 Role Performed <+> 3 Procedure <+> 4 Case Attendee <+> 4 Role Performed <+> 4 Procedure <+> 5 Case Attendee <+> 5 Role Performed <+> 5 Procedure <+> 6 Case Attendee <+> 6 Role Performed <+> 6 Procedure <+> 7 Case Attendee <+> 7 Role Performed <+> 7 Procedure [facility] IntraOp Case Times Entry 1 Patient In Room Time 05/13/19 11:22:00 Out Room Time 05/13/19 13:10:00 Anesthesia Start Time 05/13/19 11:22:00 Stop Time 05/13/19 13:10:00 Surgery / Procedure Times Start Time 05/13/19 11:39:00 Stop Time 05/13/19 13:01:00 Last Modified By: Patricio Gomez RN 05/13/19 13:09:01 [facility] IntraOp Case Times Audit 05/13/19 13:09:01 Brake Repairer Bus: [id number] Modifier: [id number] <+> 1 Out Room Time <+> 1 Stop Time <+> 1 Stop Time 05/13/19 11:39:08 Brake Repairer Bus: [id number] Modifier: [id number] <+> 1 Start Time [facility] IntraOp Communication Entry 1 Entry 2 Communication To Family/Significant other Family/Significant other Comment START CLOSING Communication By Varsha Membreno KYOne Pref Card Builder Date and Time 05/13/19 11:39:00 Last Modified By: Patricio Gomez RN Willoughby, Toni, RN 05/13/19 11:41:50 05/13/19 11:41:50 [facility] IntraOp Communication Audit 05/13/19 11:41:50 Brake Repairer Bus: [id number] Modifier: [id number] <+> 1 Communication By <+> 1 Communication To <+> 1 Comment <+> 2 Communication To <+> 2 Comment [facility] IntraOp Departure from OR Entry 1 Integumentary Assessment Integumentary WDL Assessment WDL Transfer/Handoff Transfer to Other Handoff Method Phone call Post-op Transport Stretcher/Gurney Via Patient Transport FUNMI CHANDLER, Accompanied by VAHID MCKEON KEITH, MD-ANS, Patricio Gomez RN Transfer/Handoff PT TRANSPORTED TO [facility], PT STABLE Last Modified By: Patricio Gomez RN 05/13/19 11:43:26 [facility] IntraOp Dressing and Packing Entry 1 Type Dressing Location OPSITE Wound Dressing Item Webril Applied By MICHAEL ALANIZ MD-NAVIN Other Comments TR BAND LEFT RADIAL Last Modified By: Patricio Gomez RN 05/13/19 12:57:36 [facility] IntraOp Dressing and Packing Audit 05/13/19 12:57:36 Brake Repairer Bus: [id number] Modifier: [id number] <*> Wound Dressing Item 4x4's 1 <*> Other Comments TEGADERM [facility] IntraOp Fire Risk Assessment Entry 1 Fire Info Surgical Site or 0- No Incision Above the Xyphoid Open O2 Source 1- Yes (Mask or Cannula) Available Ignition 0- No (ESU, Laser, Light Source) Fire Risk 1 Assessment Score Fire Score Fire Risk Yes Assessment Complete Fire Risk Patricio Gomez RN Assessment Verified By Fire Risk 05/13/19 11:22:00 Assessment Verified Date/Time Fire Risk Standard Fire Yes Safety Precautions Followed Last Modified By: Patricio Gomez RN 05/13/19 11:43:50 [facility] IntraOp General Case Vocational Rehabilitation Specialist 1 Case Information OR OR 20 [facility] Case Level 1 Room Verified Yes Wound Class I - Clean Specialty SN General Anesthesia Type MAC ASA Class 3 Diagnosis Preop Diagnosis SPLENIC ARTERY ANEURYSM Postop Same As Preop Yes Postop Diagnosis SPLENIC ARTERY ANEURYSM Last Modified By: Patricio Gomez RN 05/13/19 11:44:08 [facility] IntraOp Implant Log Entry 1 Entry 2 Entry 3 Type Implant (Synthetic) Implant (Synthetic) Implant (Synthetic) Implant Log Implant Type Other Other Other Tissue Implant Type Implant COIL AZUR CX DETACH COIL AZUR DETACH 0.18 EMB SYS AZUR DETACH Identification [id number] Description Implant Quantity 1 1 1 Implant Site SPLENIC SPLENIC SPLENIC Implant Identification Model Number Implant Identification Serial Number Implant [id number] Identification Lot Number Implant Terumo:Terumo Med Terumo:Terumo Med Terumo:Terumo Med Identification Parlor Chaperone Name: Implant [id number] Identification Catalog Number Implant Size Implant Has an Yes Yes Yes Expiration Date Implant Expiration 10/03/23 09/04/22 12/02/22 Date Wasted Radioactive Material Time Implanted Tissue Implant Continue for Tissue Implant Documentation Tissue Identification Number Graft Prep Per Parlor Chaperone Instructions: Tissue Preparation Method: Reconstitution Solution: Reconstitution Solution Lot Number Reconstitution Solution Expiration Date: Thawing Solution Thawing Solution Lot Number Thawing Solution Expiration Date Preparation Materials, Other Preparation Materials, Other Lot Number Preparation Materials, Other Expiration Date Tissue Prepared/Processed By Parlor Chaperone Paperwork Completed Implant Type Comment Last Modified By: Patricio Gomez RN Willoughby, Toni, RN Willoughby, Toni, RN 05/13/19 12:03:52 05/13/19 12:05:48 05/13/19 12:06:51 Entry 4 Entry 5 Entry 6 Type Implant (Synthetic) Implant (Synthetic) Implant (Synthetic) Implant Log Implant Type Other Other Other Tissue Implant Type Implant AZUR 18D FRAMING 20MM X AZUR 18D FRAMING 20MM X AZUR 18D FRAMING 20MM X Identification [id number] Description Implant Quantity 1 1 1 Implant Site SPLENIC SPLENIC SPLENIC Implant Identification Model Number Implant Identification Serial Number Implant [id number] Identification Lot Number Implant Terumo:Terumo Med Terumo:Terumo Med Terumo:Terumo Med Identification Parlor Chaperone Name: Implant [id number] Identification Catalog Number Implant Size Implant Has an Yes Yes Yes Expiration Date Implant Expiration 02/02/24 12/02/22 06/04/21 Date Wasted Radioactive Material Time Implanted Tissue Implant Continue for Tissue Implant Documentation Tissue Identification Number Graft Prep Per Parlor Chaperone Instructions: Tissue Preparation Method: Reconstitution Solution: Reconstitution Solution Lot Number Reconstitution Solution Expiration Date: Thawing Solution Thawing Solution Lot Number Thawing Solution Expiration Date Preparation Materials, Other Preparation Materials, Other Lot Number Preparation Materials, Other Expiration Date Tissue Prepared/Processed By Parlor Chaperone Paperwork Completed Implant Type Comment Last Modified By: Patricio Gomez RN Willoughby, Toni, RN Willoughby, Toni, RN 05/13/19 12:08:42 05/13/19 12:10:16 05/13/19 12:12:40 Entry 7 Entry 8 Type Implant (Synthetic) Implant (Synthetic) Implant Log Implant Type Other Other Tissue Implant Type Implant COIL AZUR DETACH 0.18 EMB SYS AZUR DETACH Identification [id number] Description Implant Quantity 1 1 Implant Site SPLENIC SPLENIC Implant Identification Model Number Implant Identification Serial Number Implant [id number] Identification Lot Number Implant Terumo:Terumo Med Terumo:Terumo Med Identification Parlor Chaperone Name: Implant [id number] Identification Catalog Number Implant Size Implant Has an Yes Yes Expiration Date Implant Expiration 09/04/22 09/04/23 Date Wasted Radioactive Material Time Implanted Tissue Implant Continue for Tissue Implant Documentation Tissue Identification Number Graft Prep Per Parlor Chaperone Instructions: Tissue Preparation Method: Reconstitution Solution: Reconstitution Solution Lot Number Reconstitution Solution Expiration Date: Thawing Solution Thawing Solution Lot Number Thawing Solution Expiration Date Preparation Materials, Other Preparation Materials, Other Lot Number Preparation Materials, Other Expiration Date Tissue Prepared/Processed By Parlor Chaperone Paperwork Completed Implant Type Comment Last Modified By: Patricio Gomez RN Willoughby, Toni, RN 05/13/19 12:13:51 05/13/19 12:29:51 [facility] IntraOp Implant Log Audit 05/13/19 12:29:51 Brake Repairer Bus: [id number] Modifier: [id number] <+> 8 Implant Identification Description <+> 8 Implant Identification Lot Number <+> 8 Implant Identification Parlor Chaperone Name: <+> 8 Implant Expiration Date <+> 8 Implant Site <+> 8 Implant Quantity <+> 8 Implant Identification Catalog Number <+> 8 Implant Type <+> 8 Implant Has an Expiration Date <+> 8 Type 05/13/19 12:13:51 Brake Repairer Bus: [id number] Modifier: [id number] <+> 7 Implant Identification Description <+> 7 Implant Identification Lot Number <+> 7 Implant Identification Parlor Chaperone Name: <+> 7 Implant Expiration Date <+> 7 Implant Site <+> 7 Implant Quantity <+> 7 Implant Identification Catalog Number <+> 7 Implant Type <+> 7 Implant Has an Expiration Date <+> 7 Type 05/13/19 12:12:40 Brake Repairer Bus: [id number] Modifier: [id number] <+> 6 Implant Identification Description <+> 6 Implant Identification Parlor Chaperone Name: <+> 6 Implant Expiration Date <+> 6 Implant Site <+> 6 Implant Quantity <+> 6 Implant Identification Catalog Number <+> 6 Implant Type <+> 6 Implant Has an Expiration Date <+> 6 Type 05/13/19 12:10:16 Brake Repairer Bus: [id number] Modifier: [id number] <+> 5 Implant Identification Description <+> 5 Implant Identification Lot Number <+> 5 Implant Identification Parlor Chaperone Name: <+> 5 Implant Expiration Date <+> 5 Implant Site <+> 5 Implant Quantity <+> 5 Implant Identification Catalog Number <+> 5 Implant Type <+> 5 Implant Has an Expiration Date <+> 5 Type 05/13/19 12:08:42 Brake Repairer Bus: [id number] Modifier: [id number] <+> 4 Implant Identification Description <+> 4 Implant Identification Lot Number <+> 4 Implant Identification Parlor Chaperone Name: <+> 4 Implant Expiration Date <+> 4 Implant Site <+> 4 Implant Quantity <+> 4 Implant Identification Catalog Number <+> 4 Implant Type <+> 4 Implant Has an Expiration Date <+> 4 Type 05/13/19 12:06:51 Brake Repairer Bus: [id number] Modifier: [id number] <+> 3 Implant Identification Description <+> 3 Implant Identification Lot Number <+> 3 Implant Identification Parlor Chaperone Name: <+> 3 Implant Expiration Date <+> 3 Implant Site <+> 3 Implant Quantity <+> 3 Implant Identification Catalog Number <+> 3 Implant Type <+> 3 Implant Has an Expiration Date <+> 3 Type 05/13/19 12:05:48 Brake Repairer Bus: [id number] Modifier: [id number] <+> 2 Implant Identification Description <+> 2 Implant Identification Lot Number <+> 2 Implant Identification Parlor Chaperone Name: <+> 2 Implant Expiration Date <+> 2 Implant Site <+> 2 Implant Quantity <+> 2 Implant Identification Catalog Number <+> 2 Implant Type <+> 2 Implant Has an Expiration Date <+> 2 Type [facility] IntraOp Intraoperative Assessment Entry 1 Handoff Method Online nursing summary Valid History / Yes Physical in Chart Preoperative Yes Checklist Reviewed/Evaluated Allergies Reviewed Yes Patient is Latex No Sensitive Isolation Not applicable Precautions Noted Level of WDL Consciousness (WDL = Alert, Oriented to Person, Place, and Time) Skin Assessment Yes Verified Present Upon IVs Arrival to OR Last Modified By: Patricio Gomez RN 05/13/19 11:44:13 [facility] IntraOp Intraoperative Equipment Entry 1 Equipment Intraop Monitoring Electrocardiogram Three lead placement (ECG) Electrode Placement Blood Pressure Non-Invasive BP Device Source Blood Pressure Arm, right upper Location Pulse Oximeter Hand, left Probe Site Antiembolic Devices Scopes Photo/Video Documentation Last Modified By: Patricio Gomez RN 05/13/19 11:44:16 [facility] IntraOp Medication Admin Entry 1 Entry 2 Entry 3 Medication/Irrigant JOSE J VISIPAQUE 320MG 150 lidocaine 1% 50ml vial JOSE J NACL 0.9PCT HPRN 200ML --[id number] - [id number] 1000U .5L --[id number] Combo Med List Time Administered Route of CONTRAST LOCAL IRRIGATION/FLUSH Administration Dose Dose 380 17 [id number] Unit of Measure mg ml units Volume Administered By MICHAEL ALANIZ MD-SUR ABEDI, NICK NIMA, MD-SUR ABEDI, NICK NIMA, MD-SUR Procedure Irrigation Irrigant Volume In Irrigant Volume Out Last Modified By: Patricio Gomez RN Willoughby, Toni, RN Willoughby, Toni, RN 05/13/19 11:44:28 05/13/19 11:44:28 05/13/19 11:44:28 Entry 4 Medication/Irrigant COMBO thrombin 5000u/NS 0.9% 10ml/Surgifoam size 100 large sponge x1 Combo Med List Time Administered Route of TOPICAL Administration Dose Dose 2 Unit of Measure units Volume Administered By MICHAEL ALANIZ MD-SUR Procedure Irrigation Irrigant Volume In Irrigant Volume Out Last Modified By: Patricio Gomez RN 05/13/19 12:58:38 [facility] IntraOp Medication Admin Audit 05/13/19 12:58:38 Brake Repairer Bus: [id number] Modifier: [id number] 1 <*> Dose 50 4 <*> Medication/Irrigant COMBO thrombin 5000u/NS 0.9% 10ml/Surgifoam size 100 large sponge x1 4 <*> Unit of Measure ml 05/13/19 12:43:41 Brake Repairer Bus: [id number] Modifier: [id number] <+> 4 Medication/Irrigant <+> 4 Route of Administration <+> 4 Administered By <+> 4 Dose <+> 4 Unit of Measure [facility] IntraOp Patient Positioning Entry 1 Procedure Aortogram Abdominal with Runoff Body Position Supine Left Arm Position Extended on hand table Right Arm Position Tucked and padded at side Left Leg Position Uncrossed, parallel Right Leg Position Uncrossed, parallel Feet Uncrossed Yes Pressure Points Yes Checked Positioning Devices Head Rest, Safety Strap, Thighs, Sled Arm Rest Device Position UNP'S Positioned By Patricio Gomez RN, MICHAEL ALANIZ MD-NAVIN Position Verified Positioning Yes Verified by Anesthesia Positioning Yes Verified by Surgeon Last Modified By: Patricio Gomez RN 05/13/19 11:45:05 [facility] IntraOp Sign In Entry 1 Patient, Site, Yes Procedure Identified Surgical Consent Yes Confirmed Relevant Surgical Yes Documents Available Surgical Site N/A Marked by person performing procedure Anesthesia Machine Yes Check Completed Medication Checks Yes Completed Allergies Yes Airway Difficult No Airway/Aspiration Risk Difficult Yes Airway/Aspiration Intervention Equipment Available Blood Loss Risk No Blood Loss Yes Intervention Equipment Prepared and Ready Hypothermia Risk Yes Warming Measures Yes Taken Last Modified By: Patricio Gomez RN 05/13/19 11:45:11 [facility] IntraOp Sign Out Entry 1 RN Confirmation Surgical Yes Procedure(s) Identified Instrument, Sponge N/A and Sharps Counts Correct/Documented Equipment Problems N/A Documented Specimen Labeled N/A Correctly Urinary Catheter N/A Documented in IView [place] Patient Yes Recovery Concerns Reviewed with Anesthesia Provider, Surgeon and RN [place] Patient Yes Management Concerns Reviewed with Anesthesia Provider, Surgeon and RN Safety Checklist Yes Elements Complete? RN Sign Out Patricio Gomez RN Signature RN Sign Out 05/13/19 13:10:00 Signature Date/Time Plan of Care Outcome - Fire Risk OUTCOME STATEMENT: Goal met Patient is free from injury related to surgical fire Plan of Care Outcome - Pt Positioning OUTCOME STATEMENT: Goal met Absence of signs and symptoms of positioning injury. Plan of Care Outcome - Skin Prep OUTCOME STATEMENT: Goal met Intraoperative care is consistent with measures to prevent infection Plan of Care Outcome - Xray/Images OUTCOME STATEMENT: Goal met Absence of observable signs or symptoms of radiation injury Plan of Care Outcome - Counts OUTCOME STATEMENT: Goal met Absence of signs and symptoms of injury related to extraneous objects Last Modified By: Patricio Gomez RN 05/13/19 11:45:26 [facility] IntraOp Sign Out Audit 05/13/19 13:09:24 Brake Repairer Bus: [id number] Modifier: [id number] <+> 1 RN Sign Out Signature Date/Time [facility] IntraOp Skin Prep Entry 1 Procedure Aortogram Abdominal with Runoff Prescribed N/A Pre-Surgical Prep Completed Prep Area BILATERAL GROINS, LEFT ARM CIRCUMFRENTIAL Intraop Prep Integumentary WDL Assessment WDL Prep Agents Chloraprep Prep by Patricio Gomez RN Hair Removal Methods No hair removal performed Last Modified By: Patricio Gomez RN 05/13/19 11:45:38 [facility] IntraOp Skin Prep Audit 05/13/19 11:51:50 Brake Repairer Bus: [id number] Modifier: [id number] <*> Prep Area BILATERAL GROINS 1 <*> Procedure Aortogram Abdominal with Runoff [facility] Intra Surgical Procedures Entry 1 Procedure Aortogram Abdominal with Runoff Additional SPLENIC ARTERY ANEURYSM Procedure REPAIR USING COIL Description EMBOLIZATION, LEFT RADIAL ACCESS Primary Procedure Yes Primary Surgeon MICHAEL ALANIZ MD-NAVIN Start 05/13/19 11:39:00 Stop 05/13/19 13:01:00 Anesthesia Type MAC Specialty SN General Wound Class I - Clean Last Modified By: Patricio Gomez RN 05/13/19 12:09:32 [facility] IntraOp Surgical Procedures Audit 05/13/19 13:09:11 Brake Repairer Bus: [id number] Modifier: [id number] <+> 1 Stop 05/13/19 12:54:09 Brake Repairer Bus: [id number] Modifier: [id number] 1 <*> Procedure Aortogram Abdominal with Runoff 05/13/19 12:09:32 Brake Repairer Bus: [id number] Modifier: [id number] 1 <*> Procedure Aortogram Abdominal with Runoff 1 <*> Additional Procedure Description SPLENIC ARTERY ANEURYSM REPAIR VS COIL EMBOLIZATION, LEFT RADIAL ACCESS 05/13/19 11:45:34 Brake Repairer Bus: [id number] Modifier: [id number] <+> 1 Primary Procedure <+> 1 Primary Surgeon <+> 1 Specialty <+> 1 Start <+> 1 Wound Class <+> 1 Anesthesia Type <+> 1 Additional Procedure Description [facility] IntraOP Time Out Entry 1 Procedure to be Aortogram Abdominal Performed with Runoff Time Out Time Out Pause Time 05/13/19 11:37:00 All activity Yes suspended (unless life threatening emergency) Team Verbally Correct patient Confirms Information identity, Correct side and site are marked, Consent form is present and accurate, Agreement on the procedure to be done, Correct patient position, Relevant images/results properly labeled/appropriately displayed, Confirm antibiotics have been administered, Confirm the skin prep has dried, Confirm prosthesis/implant/devic e is present, Performed in location of procedure after prepped/draped Antibiotic Yes Prophylaxis Administered Or In Progress Within the Last 60 Minutes Beta Raphael N/A Administered Venous Yes Thromboembolism Prophylaxis Required Anticipated Critical Events Surgeon Critical or unexpected steps, Special equipment need Anesthesia Provider Patient specific concerns Nursing Assures Sterility of instruments Essential Imaging Yes Labeled and Displayed Last Modified By: Patricio Gomez RN 05/13/19 11:39:05 [facility] IntraOp X-Ray and Images Entry 1 X-Ray/Imaging Type Fluoroscopy Fluoroscopy Type Fixed Principal Systems Architect Name Karen Vicente [employer] Protective Devices No Used Exposure Time 12.2 MIN Last Modified By: Patricio Gomez RN 05/13/19 12:53:48 Case Comments <None> Finalized By: KARUNA MARTINEZ Document Signatures Signed By: KARUNA MARTINEZ 05/14/19 12:34 Patricio Gomez RN 05/13/19 13:09 KARUNA MARTINEZ 05/23/19 14:03 Unfinalized History Date/Time Username Reason for Unfinalizing Freetext Reason for Unfinalizing 05/14/19 12:20 [email or web address] Correct Billing 05/23/19 13:59 [facility]ATTSD[facility] Correct Billing Electronically signed by [facility] Conversion Post Partum Nurse Cerner at 11/20/2022 2:28 PM CDT documented in this encounter Plan of Treatment Not on file documented as of this encounter Visit Diagnoses Not on filedocumented in this encounter Care Teams Bibliographic Services Specialist Relationship Specialty Start Date End Date Anabel Garcia APRN [address], [facility] [place] [address] PCP - General Family Medicine 01/10/23 Power Arreguin MD [address] [address] Medical Oncologist Hematology and Oncology 10/02/22 Nataliya Montana, PA-C [address] [facility] [address] [place], [place] [id number] Physician Cable Cutter And Swager Oncology 10/02/22 Estelle Navarro, RN Nurse Navigator Oncology 11/29/22 Breann Dalton, CATIA Registered Nurse Oncology 11/29/22 documented as of this encounter
--- OUTSIDE RECORDS SUMMARY | 2025-05-19 13:16 | XMS_ITS | Clinical Summary ---
Author Organization [facility] Address [address] [id number] Care Team Providers Care Director University Name Role Phone Unavailable Primary Care Provider Unavailabl e Social History Tobacco Use Types Packs/Day Years Used Date Smoking Tobacco: Never Assessed Sex and Gender Information Value Date Recorded Sex Assigned at Not on file Legal Sex Male 5:55 PM EDT Gender Identity Not on file Sexual Orientation Not on file Plan of Treatment Not on file
--- OUTSIDE RECORDS SUMMARY | 2025-05-19 13:16 | XMS_ITS | Encounter Summary ---
Author Organization [id number] ([place], [place], [place], [place]) Address [address] [place] [address] Care Team Providers Care Dynamic Etching Processor Name Role Phone Power Arreguin MD Unavailable Nataliya Montana PA-C Unavailable [phone] Estelle Navarro RN Unavailable Unavailable Breann Dalton RN Unavailable Unavailable Anabel Garcia APRN Primary Care Provider [phone] Encounter Details Date Type Department Care Team (Late st Contact Info) Description 04/28/2019 Transcribed Document [facility] [place] Family Medicine [address] [place] [address] ProviderGene MD [address] [place] [address] Social History Tobacco Use Types Packs/Day Years Used Date Smoking Tobacco: Never Assessed Sex and Gender Information Value Date Recorded Sex Assigned at Not on file Legal Sex Male 5:26 PM CDT Gender Identity Not on file Sexual Orientation Not on file documented as of this encounter Miscellaneous Notes * Cerner Conversion Note - Gene Lane MD - 04/28/2019 1:05 PM CDT Patient Education Materials Follows: Angiogram, Care After This sheet gives you information about how to care for yourself after your procedure. Your doctor may also give you more specific instructions. If you have problems or questions, contact your doctor. Follow these instructions at home: Insertion site care ??? Follow instructions from your doctor about how to take care of your long, thin tube (catheter) insertion area. Make sure you: ? Wash your hands with soap and water before you change your bandage (dressing). If you cannot use soap and water, use hand critical care clinical nurse specialist. ? Change your bandage as told by your doctor. ? Leave stitches (sutures), skin glue, or skin tape (adhesive) strips in place. They may need to stay in place for 2 weeks or longer. If tape strips get loose and curl up, you may trim the loose edges. Do not remove tape strips completely unless your doctor says it is okay. ??? Do not take baths, swim, or use a hot tub until your doctor says it is okay. ??? You may shower 24?48 hours after the procedure or as told by your doctor. ? Gently wash the area with plain soap and water. ? Pat the area dry with a clean towel. ? Do not rub the area. This may cause bleeding. ??? Do not apply powder or lotion to the area. Keep the area clean and dry. ??? Check your insertion area every day for signs of infection. Check for: ? More redness, swelling, or pain. ? Fluid or blood. ? Warmth. ? Pus or a bad smell. Activity ??? Rest as told by your doctor, usually for 1?2 days. ??? Do not lift anything that is heavier than 10 lbs. (4.5 kg) or as told by your doctor. ??? Do not drive for 24 hours if you were given a medicine to help you relax (sedative). ??? Do not drive or use heavy machinery while taking prescription pain medicine. General instructions ??? Go back to your normal activities as told by your doctor, usually in about a week. Ask your doctor what activities are safe for you. ??? If the insertion area starts to bleed, lie flat and put pressure on the area. If the bleeding does not stop, get help right away. This is an emergency. ??? Drink enough fluid to keep your pee (urine) clear or pale yellow. ??? Take mvwv-utr-freyywn and prescription medicines only as told by your doctor. ??? Keep all follow-up visits as told by your doctor. This is important. Contact a doctor if: ??? You have a fever. ??? You have chills. ??? You have more redness, swelling, or pain around your insertion area. ??? You have fluid or blood coming from your insertion area. ??? The insertion area feels warm to the touch. ??? You have pus or a bad smell coming from your insertion area. ??? You have more bruising around the insertion area. ??? Blood collects in the tissue around the insertion area (hematoma) that may be painful to the touch. Get help right away if: ??? You have a lot of pain in the insertion area. ??? The insertion area swells very fast. ??? The insertion area is bleeding, and the bleeding does not stop after holding steady pressure on the area. ??? The area near or just beyond the insertion area becomes pale, cool, tingly, or numb. These symptoms may be an emergency. Do not wait to see if the symptoms will go away. Get medical help right away. Call your local emergency services (911 in the [place] Do not drive yourself to the hospital. Summary ??? After the procedure, it is common to have bruising and tenderness at the long, thin tube insertion area. ??? After the procedure, it is important to rest and drink plenty of fluids. ??? Do not take baths, swim, or use a hot tub until your doctor says it is okay to do so. You may shower 24?48 hours after the procedure or as told by your doctor. ??? If the insertion area starts to bleed, lie flat and put pressure on the area. If the bleeding does not stop, get help right away. This is an emergency. This information is not intended to replace advice given to you by your health care provider. Make sure you discuss any questions you have with your health care provider. Document Released: 10/18/2009 Document Revised: 07/16/2017 Document Reviewed: 07/16/2017 [employer] Release [employer] Interactive Patient Education ? 2019 [employer]. Moderate Conscious Sedation, Adult, Care After These [...] you are awake and alert. ??? Take odll-qce-ohferyg and prescription medicines only as told by [...] 05/12/2014 Document Revised: 12/24/2016 Document Reviewed: 11/10/2016 [employer] Interactive Patient Education ? 2019 [employer] Electronically signed by [employer] Cafeteria Head Cook Ghassan at 11/20/2022 2:16 PM CDT documented in this encounter Plan of Treatment Not on file documented as of this encounter Visit Diagnoses Not on filedocumented in this encounter Care Teams Dynamic Etching Processor Relationship Specialty Start Date End Date Anabel Garcia APRN [facility]. [address] [facility] [place] [address] PCP - General Family Medicine 01/10/23 Power Arreguin MD 12[address] [facility] [address] [place] [address] Medical Oncologist Hematology and Oncology 10/02/22 Nataliya Montana, PA-C [address] [id number] Physician Accessioner Oncology 10/02/22 Estelle Navarro, RN Nurse Navigator Oncology 11/29/22 Breann Dalton, RN Registered Nurse Oncology 11/29/22 documented as of this encounter
--- OUTSIDE RECORDS SUMMARY | 2025-05-19 13:17 | XMS_ITS | Encounter Summary ---
Author Organization [employer] ([place], [place], [place], [place]) Address [address] [place] [address] Care Team Providers Care Maintenance Of Way Foreman Name Role Phone Power Arreguin MD Unavailable Nataliya Montana PA-C Unavailable Estelle Navarro RN Unavailable Unavailable Breann Dalton RN Unavailable Unavailable Anabel Garcia APRN Primary Care Provider Encounter Details Date Type Department Care Team (Late st Contact Info) Description 05/13/2019 Transcribed Document [facility] [place] Family Medicine [address] [place] [address] ProviderGene MD [address] [place] [address] Social History Tobacco Use Types Packs/Day Years Used Date Smoking Tobacco: Never Assessed Sex and Gender Information Value Date Recorded Sex Assigned at Not on file Legal Sex Male 5:26 PM CDT Gender Identity Not on file Sexual Orientation Not on file documented as of this encounter Miscellaneous Notes * Cerner Conversion Note - Gene Lane MD - 05/13/2019 4:18 PM CDT Stroke/Warfarin Instructions Entered On: 05/13/2019 16:19 EDT Performed On: 05/13/2019 16:18 EDT by LUDA BRYANT RN Stroke/Warfarin Instructions Stroke/TIA Discharge Ins : Open Warfarin Discharge Ins : N/A LUDA BRYANT RN - 05/13/2019 16:18 EDT Stroke/TIA Discharge Instructions Individualized Stroke Risk Factors *Q : Dyslipidemia, Hypertension/High blood pressure, Other: History of an aneurysm Stroke Education Handouts Given *Q : Yes LUDA BRYANT RN - 05/13/2019 16:18 EDT Stroke Education Materials Given-Grid Activation of EMS *Q : Verbalizes understanding Follow-up Care After Discharge *Q : Verbalizes understanding Medications prescribed at DC *Q : Verbalizes understanding Risk Factors for Stroke *Q : Verbalizes understanding Warning S&S of Stroke *Q : Verbalizes understanding LUDA BRYANT RN - 05/13/2019 16:18 EDT Stroke/TIA Signs/Symptoms to Report Immediately : Sudden onset difficulty speaking, Sudden onset difficulty understanding speech, Sudden onset change in vision, Sudden onset weakness particulary on one side of the body, Sudden onset numbness/tingling, Sudden severe headache, Sudden dizziness or trouble with gait, Call : EMS activation is crucial My LDL Level: : LDL Level No qualifying data available. LUDA BRYANT RN - 05/13/2019 16:18 EDT Electronically signed by [facility] Conversion Muffler Tender Cerner at 11/20/2022 2:26 PM CDT documented in this encounter Plan of Treatment Not on file documented as of this encounter Visit Diagnoses Not on filedocumented in this encounter Care Teams Maintenance Of Way Foreman Relationship Specialty Start Date End Date Anabel Garcia APRN [facility]. [facility] [address], [place] [address] PCP - General Family Medicine 01/10/23 Power Arreguin MD [address] [address] Medical Oncologist Hematology and Oncology 10/02/22 Nataliya Montana PA-C [address] [facility] [address] [place] [address] Physician Speech Instructor Oncology 10/02/22 Estelle Navarro, RN Nurse Navigator Oncology 11/29/22 Breann Dalton RN Registered Nurse Oncology 11/29/22 documented as of this encounter
--- OUTSIDE RECORDS SUMMARY | 2025-05-19 13:17 | XMS_ITS | Encounter Summary ---
Author Organization [facility] Address [address] [facility], [address] [place] [address] Care Team Providers Care Iron And Steel Work Supervisor Name Role Phone Anabel Garcia APRN, CNP Primary Care Provider Encounter Details Date Type Department Care Team (Latest Contact Info) Description 03/17/2021 Transcribe Orders [facility] PRE ACCESS [address] [place], [place] [phone] Anabel Garcia APRN - CNP [address] [address] Pain of lower extremity, unspecified laterality (Primary Dx) Social History Tobacco Use Types Packs/Day Years Used Date Smoking Tobacco: Every Day Cigarettes Smokeless Tobacco: Never Alcohol Use Standard Drinks/Week Comments Never 0 (1 standard drink = 0.6 oz pur e alcohol) AUDIT-C Answer Date Recorded Frequency of Alcohol Consumption Never 11/13/2018 Average Number of Drinks Not on file 019 Frequency of Binge Drinking Not on file 11/03 Sex and Gender Information Value Date Recorded Sex Assigned at Not on file Legal Sex Male 4:52 AM EST Gender Identity Not on file Sexual Orientation Not on file documented as of this encounter Plan of Treatment Not on file documented as of this encounter Visit Diagnoses Diagnosis Pain of lower extremity, unspecified laterality- Primary documented in this encounter Care Teams Iron And Steel Work Supervisor Relationship Specialty Start Date End Date Anabel Garcia APRN - CNP [address] [address] PCP - General Family Medicine 11/13/18 documented as of this encounter
--- OUTSIDE RECORDS SUMMARY | 2025-05-19 13:17 | XMS_ITS | Encounter Summary ---
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
--- OUTSIDE RECORDS SUMMARY | 2025-05-19 13:17 | XMS_ITS | Clinical Summary ---
Author Organization [facility] Address [address] [place] [address] Care Team Providers Care Newsroom Intern Name Role Phone Unavailable Primary Care Provider Unavailabl e Social History Tobacco Use Types Packs/Day Years Used Date Smoking Tobacco: Never Assessed Abuse Screen Answer Date Recorded Unsafe at Home or Work/School Not on file Feels Threatened by Someone? Not on file 05/2023 Does Anyone Keep You from Co ntacting Others or Doint Things Outside the Home? Not on file 05/14/2023 Physical Sign of Abuse Present Not on file 1 Housing Stability Answer Date Recorded Current Living Arrangements Not on file 05/05 Potentially Unsafe Housing Conditions Not on keyur e 05/14/2023 Family and Community Support Answer Murphy e Recorded Help with Day-to-Day Activities Not on file 05/14/2023 Lonely or Isolated Not on file 05/14/2023 Employment Answer Date Recorded Do you want help finding or keeping work or a jose b? Not on file 05/14/2023 Disabilities Answer Date Recorded Concentrating, Remembering, or Making Decisions Difficulty Not on file 05/14/2023 Doing Errands Independently Difficulty Not on fi le 05/14/2023 Education Answer Date Recorded Help with school or training? Not on file Preferred Language Not on file 05/14/2023 Sex and Gender Information Value Date Recorded Sex Assigned at Not on file Legal Sex Male 1:51 PM EDT Gender Identity Not on file Sexual Orientation Not on file Plan of Treatment Health Maintenance Due Date Last Done Comments ANNUAL PHYSICAL 1950 HEPATITIS C SCREENING 1950 TDAP/TD VACCINES (1 - Tdap) 10/28/1970 COLOGUARD 10/28/1996 COLON CANCER SCREENING 5 YEAR SIGMOIDOSCOPY 10/28/1996 COLONOSCOPY 10/28/1996 COLORECTAL CANCER SCREENING 10/28/1996 CT COLONOGRAPHY 10/28/1996 FECAL OCCULT BLOOD TEST 10/28/1996 FIT Testing (1 year) 10/28/1996 Pneumococcal Vaccine 50+ (1 of 1 - PCV) 10/28/2001 ZOSTER VACCINE (1 of 2) 10/28/2001 AAA SCREEN ONCE 10/28/2016 INFLUENZA VACCINE 03/05/2025 COVID-19 Vaccine ( - season) 2025
--- OUTSIDE RECORDS SUMMARY | 2025-05-19 13:17 | XMS_ITS | Encounter Summary ---
Author Organization [employer] ([place], [place], [place], [place]) Address [address] [place] [address] Care Team Providers Care Rural Route Carrier Name Role Phone Power Arreguin MD Unavailable Nataliya Montana PA-C Unavailable Estelle Navarro RN Unavailable Unavailable Breann Dalton RN Unavailable Unavailable Anabel Garcia APRN Primary Care Provider Encounter Details Date Type Department Care Team (Late st Contact Info) Description 05/13/2019 Transcribed Document [facility] [place] [address] [place] [address] ProviderGene MD [address] [place] [address] Social History Tobacco Use Types Packs/Day Years Used Date Smoking Tobacco: Never Assessed Sex and Gender Information Value Date Recorded Sex Assigned at Not on file Legal Sex Male 5:26 PM CDT Gender Identity Not on file Sexual Orientation Not on file documented as of this encounter Miscellaneous Notes * Cerner Conversion Note - Gene Lane MD - 05/13/2019 3:53 PM CDT Patient Education Materials Follows: Moderate Conscious Sedation, Adult, Care After These [...] you are awake and alert. ??? Take lacq-thq-nvzocsa and prescription medicines only as told by [...] 05/12/2014 Document Revised: 12/24/2016 Document Reviewed: 11/10/2016 [employer] Interactive Patient Education ? 2019 [employer] Radial Site Care Refer to this sheet in the next few weeks. These instructions provide you with information about [...] the procedure? After your procedure, it is typical to have the following: ??? Bruising at the radial site that usually fades within 1?2 weeks. ??? Blood collecting in the tissue (hematoma) that may be painful to the touch. It should usually decrease in size and tenderness within 1?2 weeks. Follow these instructions at home: ??? Take medicines only as directed by your health care provider. ??? You may shower 24?48 hours after the procedure or as directed by your health care provider. Remove the bandage (dressing) and gently wash the site with plain soap and water. Pat the area dry with a clean towel. Do not rub the site, because this may cause bleeding. ??? Do not take baths, swim, or use a hot tub until your health care provider approves. ??? Check your insertion site every day for redness, swelling, or drainage. ??? Do not apply powder or lotion to the site. ??? Do not flex or bend the affected arm for 24 hours or as directed by your health care provider. ??? Do not push or pull heavy objects with the affected arm for 24 hours or as directed by your health care provider. ??? Do not lift over 10 lb (4.5 kg) for 5 days after your procedure or as directed by your health care provider. ??? Ask your health care provider when it is okay to: ? Return to work or school. ? Resume usual physical activities or sports. ? Resume sexual activity. ??? Do not drive home if you are discharged the same day as the procedure. Have someone else drive you. ??? You may drive 24 hours after the procedure unless otherwise instructed by your health care provider. ??? Do not operate machinery or power tools for 24 hours after the procedure. ??? If your procedure was done as an outpatient procedure, which means that you went home the same day as your procedure, a responsible adult should be with you for the first 24 hours after you arrive home. ??? Keep all follow-up visits as directed by your health care provider. This is important. Contact a health care provider if: ??? You have a fever. ??? You have chills. ??? You have increased bleeding from the radial site. Hold pressure on the site. Get help right away if: ??? You have unusual pain at the radial site. ??? You have redness, warmth, or swelling at the radial site. ??? You have drainage (other than a small amount of blood on the dressing) from the radial site. ??? The radial site is bleeding, and the bleeding does not stop after 30 minutes of holding steady pressure on the site. ??? Your arm or hand becomes pale, cool, tingly, or numb. This information is not intended to replace advice given to you by your health care provider. Make sure you discuss any questions you have with your health care provider. Document Released: 08/24/2011 Document Revised: 12/27/2016 Document Reviewed: 02/07/2015 [employer] Interactive Patient Education ? 2019 [employer]. Transradial Angiogram Transradial angiogram is an imaging test. This test uses X-ray images and colored dye that is made up of an iodine solution (contrast dye). This test is done to check for any abnormalities in the vessels that might affect blood flow, such as: ??? A blocked blood vessel. ??? A narrowed blood vessel. ??? A blood clot. ??? Abnormal, inherited blood vessel connections. During this test, a small, flexible tube (catheter) is inserted into an artery in the wrist (radial artery). The catheter is moved from the radial artery into other blood vessels in the body that need to be examined. Contrast dye is used to make blood vessels visible on X-ray images that are taken during the procedure. Tell a health care provider about: ??? Any allergies you have. ??? All medicines you are taking, including vitamins, herbs, eye drops, creams, and dtvz-fks-gooxzvb medicines. ??? Any problems you or family members have had with anesthetic medicines. ??? Any blood disorders you have. ??? Any surgeries you have had. ??? Any medical conditions you have. ??? Whether you are or may be . What are the risks? Generally, this is a safe procedure. However, problems may occur, including: ??? Infection. ??? Bleeding. ??? Allergic reactions to medicines or dyes. ??? Damage to other structures or organs, such as the blood vessels, lungs, or heart. ??? Blood clots. ??? Blood flow through the radial artery stopping or slowing down. This is rare. What happens before the procedure? Ask your health care provider about: ? Changing or stopping your regular medicines. This is especially important if you are taking diabetes medicines or blood thinners. ? Taking medicines such as aspirin and ibuprofen. These medicines can thin your blood. Do not take these medicines before your procedure if your health care provider instructs you not to. ??? Follow instructions from your health care provider about eating or drinking restrictions. ??? Do not use tobacco products for at least 24 hours before your procedure or as told by your health care provider. This includes cigarettes, chewing tobacco, or e-cigarettes. ??? Ask your health care provider how your surgical site will be marked or identified. ??? You may be given antibiotic medicine to help prevent infection. ??? You may have a physical exam. ??? You may have tests, including: ? Blood tests. ? X-rays. ??? Plan to have someone take you home after the procedure. ??? If you will be going home right after the procedure, plan to have someone with you for 24 hours. What happens during the procedure? To reduce your risk of infection: ? Your health care team will wash or sanitize their hands. ? Your skin will be washed with soap. ??? An IV tube will be inserted into one of your veins. ??? You will be given the following: ? A medicine to help you relax (sedative). ? A medicine that is injected to numb the area near the radial artery in your wrist (local anesthetic). ??? A needle will be inserted into your radial artery in your wrist. ??? A catheter will be inserted into your radial artery. The needle helps guide the catheter into your radial artery. ??? The catheter will be moved through your body to the desired blood vessel. An X-ray machine (fluoroscope) will help your health care provider bring the catheter to the correct place in your body. ??? Contrast dye will be injected into the catheter and will travel to the blood vessel that is being examined. ??? X-ray images will be taken of how the dye flows through your blood vessel. While the images are being taken, you may be given instructions on breathing, swallowing, moving, or talking. ??? The catheter and needle will be removed from your body. ??? A pressure (compression) wrap will be applied to your wrist to stop bleeding. The procedure may vary among health care providers and hospitals. What happens after the procedure? You will need to keep your wrist still for as long as told by your health care provider. ??? The pressure applied to your wrist will be gradually decreased until the compression wrap is removed. ??? You may have soreness and bruising in your wrist. This is normal. This should get better within about 1 week. ??? Your blood pressure, heart rate, breathing rate, and blood oxygen level will be monitored often until the medicines you were given have worn off. ??? You may continue to receive fluids and medicines through an IV tube. ??? Do not drive for 24 hours if you received a sedative. ??? You may have to wear compression stockings. These stockings help to prevent blood clots and reduce swelling in your legs. This information is not intended to replace advice given to you by your health care provider. Make sure you discuss any questions you have with your health care provider. Document Released: 04/15/2013 Document Revised: 03/24/2017 Document Reviewed: 06/25/2016 [employer] Interactive Patient Education ? 2019 [employer]. Electronically signed by Calixto Spencer Conversion Identity Access Management Architect Cerner at 11/20/2022 2:28 PM CDT documented in this encounter Plan of Treatment Not on file documented as of this encounter Visit Diagnoses Not on filedocumented in this encounter Care Teams Rural Route Carrier Relationship Specialty Start Date End Date Anabel Garcia APRN [facility] [address], [place] [address] PCP - General Family Medicine 01/10/23 Power Arreguin MD [address] [facility] [address], [place] [address] Medical Oncologist Hematology and Oncology 10/02/22 Nataliya Montana PA-C [address] [facility] [address] [place] [address] Physician Candy Maker Helper Oncology 10/02/22 Estelle Navarro, RN Nurse Navigator Oncology 11/29/22 Breann Dalton, RN Registered Nurse Oncology 11/29/22 documented as of this encounter
--- OUTSIDE RECORDS SUMMARY | 2025-05-19 13:17 | XMS_ITS | Encounter Summary ---
Author Organization [employer] ([place], [place], [place], [place]) Address [address] [place] [address] Care Team Providers Care News Editor Name Role Phone Power Arreguin MD Unavailable Nataliya Montana PA-C Unavailable [phone] Estelle Navarro RN Unavailable Unavailable Breann Dalton RN Unavailable Unavailable Anabel Garcia APRN Primary Care Provider Encounter Details Date Type Department Care Team (Late st Contact Info) Description 05/13/2019 Transcribed Document [facility] [place] Family Medicine [address] [place] [address] ProviderGene MD [address] [place] [address] Social History Tobacco Use Types Packs/Day Years Used Date Smoking Tobacco: Never Assessed Sex and Gender Information Value Date Recorded Sex Assigned at Not on file Legal Sex Male 5:26 PM CDT Gender Identity Not on file Sexual Orientation Not on file documented as of this encounter Miscellaneous Notes * Cerner Conversion Note - Gene Lane MD - 05/13/2019 11:39 AM CDT [facility] Main OR Preop Summary Primary Physician: MICHAEL ALANIZ MD-SUR Finalized Date/Time: 05/13/19 13:27:40 Pt. Name: MEME ROSE NICHOLAS ChackoO.B./Sex: 1950 Male Med Rec #: [id number] Physician: MICHAEL ALANIZ MD-SUR Financial #: [id number] Pt. Type: I Room/Bed: HIS/22 Admit/Disch: 05/13/19 09:34:00 - Institution: [facility] PreOp Case Times Entry 1 In Preop 05/13/19 09:44:00 Ready for Holding n/a Room Patient Ready for 05/13/19 10:24:00 Surgery Patient Out of Preop 05/13/19 11:19:00 Patient Out of n/a Holding Room Last Modified By: Faith Zendejas Nurse Slitter And Rewinder Machine Operator 05/13/19 13:27:38 [facility] PreOp Case Times Audit 05/13/19 13:27:38 Volunteer Manager: [id number] Modifier: [id number] <+> 1 Patient Out of Preop Finalized By: Faith Zendejas Nurse Coordinator Cardiopulmonary Services Signatures Signed By: Faith Zendejas Nurse 05/13/19 13:27 Electronically signed by T[facility] Conversion Driller Machine Cerner at 11/20/2022 2:17 PM CDT documented in this encounter Plan of Treatment Not on file documented as of this encounter Visit Diagnoses Not on filedocumented in this encounter Care Teams News Editor Relationship Specialty Start Date End Date Anabel Garcia APRN [facility] [address] [place] [address] PCP - General Family Medicine 01/10/23 Power Arreguin MD [address] [address] Medical Oncologist Hematology and Oncology 10/02/22 Nataliya Montana PA-C [address] [facility] [address] [place] [address] Physician Monument Mason Oncology 10/02/22 Estelle Navarro, CATIA Nurse Navigator Oncology 11/29/22 Breann Dalton, CATIA Registered Nurse Oncology 11/29/22 documented as of this encounter
--- OUTSIDE RECORDS SUMMARY | 2025-05-19 13:18 | XMS_ITS | Encounter Summary ---
Author Organization [employer] ([place], [place], [place], [place]) Address [address] [place] [address] Care Team Providers Care Amusement Park Entertainer Name Role Phone Power Arreguin MD Unavailable Nataliya Montana PA-C Unavailable [phone] Estelle Navarro RN Unavailable Unavailable Breann Dalton RN Unavailable Unavailable Anabel Garcia APRN Primary Care Provider Encounter Details Date Type Department Care Team (Late st Contact Info) Description 04/28/2019 Transcribed Document [facility] [place] Family Medicine [address] [place] [address] ProviderGene MD [address] [place] [address] Social History Tobacco Use Types Packs/Day Years Used Date Smoking Tobacco: Never Assessed Sex and Gender Information Value Date Recorded Sex Assigned at Not on file Legal Sex Male 5:26 PM CDT Gender Identity Not on file Sexual Orientation Not on file documented as of this encounter Miscellaneous Notes * Cerner Conversion Note - Gene Lane MD - 04/28/2019 6:55 AM CDT Pre Procedure Adult Entered On: 04/28/2019 7:03 EDT Performed On: 04/28/2019 6:55 EDT by KAY GOMEZ RN Height and Weight, Clinical Dosing Height Source : Stated Height Entry Format : Burke Height, Feet : 6 ft(Converted to: 183 cm, 72 Inch) Height, Inches : 3 Inch(Converted to: 0 ft 3 Inch, 7.62 cm) Clinical Height : 190.5 cm Weight Source : Standing scale Weight Entry Format : Burke Clinical Dosing Weight : 97.27 kg Weight, Pounds : 214 lb Body Surface Area (BSA) : 2.26 m2 Body Mass Index : 26.8 kg/m2 (HI) Orient Body Weight : 83 kg KAY GOMEZ RN - 04/28/2019 6:55 EDT Health Histories Smoking Status : 10 or more cigarettes (1/2 pack or more)/day in last 30 days Smokeless Tobacco Status : Never Desires Tobacco Cessation Medication : No Reason for No Tobacco Cessation Medication : Refuses FDA approved medications KAY GOMEZ RN - 04/28/2019 6:55 EDT Social History (As Of: 04/28/2019 07:03:04 EDT) Tobacco: Use in Last 12 Months: Cigarettes. Smoking Status Current every day smoker. Years of Use: 40. Last Used: 4-6 cigarettes/day. (Last Updated: 07/12/2015 09:42:26 EST by LEANDRO FINK RN) Alcohol: Alcohol Use History No. (Last Updated: 07/12/2015 09:42:31 EST by LEANDRO FINK RN) Substance Abuse: Drug Use Hx: No. (Last Updated: 03/26/2018 11:26:13 EDT by DIANA FIGUEROA RN) Infectious Disease History Infectious Disease History : Chicken pox/Shingles, Hepatitis A, Measles Fever/Chills Last 48 Hours : No Travel To Regions with Travel Advisories : No Travel Outside [place] Within Last 30 Days : No Contact With Traveler to Advisory Region : No Tuberculosis Symptoms : None KAY GOMEZ RN - 04/28/2019 6:55 EDT Anesthesia/Transfusion History Family History of Anesthesia Reaction : No prior transfusion(s) Transfusion History : Prior anesthesia without reaction Family History of Anesthesia Reaction : None KAY GOMEZ RN - 04/28/2019 6:55 EDT Functional Assessment Living Situation : Home Patient Lives With : Spouse Current Home Treatments : None KAY GOMEZ RN - 04/28/2019 6:55 EDT Psychosocial History Do You Have a History of the Following? : Patient denies history Currently in Unsafe Situation : No Tried to Harm Yourself in the Past? : No Thoughts of Harming/Killing Yourself : No KAY GOMEZ RN - 04/28/2019 6:55 EDT Advance Directive Patient has Advance Directive *Q : No, patient refuses Advance Directive information KAY GOMEZ RN - 04/28/2019 6:55 EDT Teaching/Learning Assessment Barriers To Learning : None evident Individuals Taught : Patient, Spouse Readiness to Learn : Cooperative Readiness to Learn : Explanation Learning Style Preferences Patient : Verbal explanation Learning Style Preferences Family : Verbal explanation KAY GOMEZ RN - 04/28/2019 6:55 EDT Education Topics, Periop Preadmission Perioperative Education Grid Arrival Time/Place : Verbalizes understanding CAUTI : Verbalizes understanding Central Lines : Verbalizes understanding CHG Preoperative Bathing/Cloths : Verbalizes understanding Falls : Verbalizes understanding Incentive Spirometry : Verbalizes understanding Infection Control : Verbalizes understanding IV's : Verbalizes understanding NPO Status/Directions : Verbalizes understanding Pain Management : Verbalizes understanding Postoperative Care Preparations : Verbalizes understanding Preprocedure Preparations : Verbalizes understanding Preprocedure Tests/Labs : Verbalizes understanding Remove Body Piercings : Verbalizes understanding Responsible Adult : Verbalizes understanding SNE's : Verbalizes understanding Take/Hold Medications Pre-Procedure : Verbalizes understanding Other : Verbalizes understanding KAY GOMEZ RN - 04/28/2019 6:55 EDT General Info Arrived From : Home Mode of Arrival on Unit : Ambulatory Patient Arrival Date/Time : 04/28/2019 6:30 EDT Legal Guardian : Spouse Want Family/Rep/Phys Notified of Admit : No Emergency Contact #1 : Leeanna Emergency Contact #1 Emergency Contact #1 Relationship : Emergency Contact #2 : na Emergency Contact #2 Phone Number : na Emergency Contact #2 Relationship : na Chief Complaint : visceral angiogram Information Obtained From : Patient, Spouse Primary Language : Anguillan Preferred Communication Mode : Verbal Communication Barrier : None KAY GOMEZ RN - 04/28/2019 6:55 EDT Vital Measurements Temperature Source : Temporal artery scanning Temperature Mode : Fahrenheit Temperature, Fahrenheit : 98.6 Deg F Clinical Temperature, C : 37 Deg C Peripheral Pulse Rate : 57 bpm (LOW) Respiratory Rate : 16 Breaths/Min Systolic Blood Pressure : 130 mmHg Diastolic Blood Pressure : 63 mmHg Oxygen Saturation : 98 % KAY GOMEZ RN - 04/28/2019 6:55 EDT Sleep Apnea Risk Assmt Hx of Obstructive Sleep Apnea Diagnosis : No Snore Loudly : No Tired, Fatigued, or Sleepy During Day : No Observed Stopping Breathing During Sleep : No Have/Are Being Treated for Hypertension : No BMI Greater Than 35 kg/m2 : No Age over 50 Years Old : Yes Neck Circumference Greater Than 40 cm : Yes Gender Male : Yes STOP-BANG Sleep Apnea Risk Level Score : 3 KAY GOMEZ RN - 04/28/2019 6:55 EDT Drew Scale Drew Sensory Perception : No impairment Drew Moisture : Rarely moist Drew Activity : Walks occasionally Drew Mobility : No limitation Drew Nutrition : Adequate Drew Friction and Shear : No apparent problem Drew Score : 21 KAY GOMEZ RN - 04/28/2019 6:55 EDT Pain Assessment Pain Assessment : Initial assessment Pain Scale Used : 0-10 Scale KAY GOMEZ RN - 04/28/2019 6:55 EDT Fall Risk Scales ABCs Fall Injury Risk Identification : None GRAHAM Hx Falls Immediate/Within 3 Months : No Graham Secondary Diagnosis : No GRAHAM Use of Ambulatory Aid : None GRAHAM IV Therapy or IV Access : Yes Graham Gait/Transferring : Normal, bedrest, immobile Graham Mental Status : Oriented to own ability Graham Fall Risk Score : 20 GRAHAM Fall Scale Risk Level : 0-24 Low Risk Devers Fall Interventions : Adequate lighting, Assistive devices within reach, Bed in low position, Call device within reach, Fall prevention handout/education per facility policy, Frequent orientation to call device, Frequent orientation to surroundings, Hourly comfort/safety rounds, Non-slip footwear, Personal items within reach, Reinforced to call for assistance before getting out of bed, Room free of clutter/spills, Upper side-rails up, Wheels locked, Wires/Cords secured KAY GOMEZ RN - 04/28/2019 6:55 EDT Valuables and Belongings Valuables and Belongings : Clothing, Personal items, No comfort items, No jewelry, No personal devices, No assistive devices, No respiratory devices, No medications Clothing : Common streetwear Clothing Disposition : With family Personal Items : Wallet Personal Items Disposition : With family KAY GOMEZ RN - 04/28/2019 6:55 EDT Pain Scale Intensity : 0 KAY GOMEZ, RN - 04/28/2019 6:55 EDT Image 4 - Images currently included in the form version of this document have not been included in the text rendition version of the form. documented in this encounter Plan of Treatment Not on file documented as of this encounter Visit Diagnoses Not on filedocumented in this encounter Care Teams Amusement Park Entertainer Relationship Specialty Start Date End Date Anabel Garcia APRN [facility] [address] [facility] [place] [address] PCP - General Family Medicine 01/10/23 Power Arreguin MD [address] [place] [address] Medical Oncologist Hematology and Oncology 10/02/22 Nataliya Montana, PA-C [address] [place] [address] [place] [address] Physician Doughmaker Oncology 10/02/22 Estelle Navarro, CATIA Nurse Navigator Oncology 11/29/22 Breann Dalton, CATIA Registered Nurse Oncology 11/29/22 documented as of this encounter
--- OUTSIDE RECORDS SUMMARY | 2025-05-19 13:18 | XMS_ITS | Encounter Summary ---
Author Organization [employer] ([place], [place], [place], [place]) Address [address] [place] [address] Care Team Providers Care Registered Nurse Cardiac Telemetry Name Role Phone Power Arreguin MD Unavailable Nataliya Montana PA-C Unavailable [phone] Estelle Navarro RN Unavailable Unavailable Breann Dalton RN Unavailable Unavailable Anabel Garcia APRN Primary Care Provider Encounter Details Date Type Department Care Team (Late st Contact Info) Description 05/12/2019 Transcribed Document [facility] Family Medicine [address] [place] [address] ProviderGene MD [address] [place] [address] Social History Tobacco Use Types Packs/Day Years Used Date Smoking Tobacco: Never Assessed Sex and Gender Information Value Date Recorded Sex Assigned at Not on file Legal Sex Male 5:26 PM CDT Gender Identity Not on file Sexual Orientation Not on file documented as of this encounter Miscellaneous Notes * Cerner Conversion Note - Gene Lane MD - 05/12/2019 3:21 PM CDT PAT Adult Entered On: 05/12/2019 15:23 EDT Performed On: 05/12/2019 15:21 EDT by RENNY WING RN Height and Weight, Clinical Dosing Height Source : Measured Height Entry Format : [place] Height, Feet : 0 ft(Converted to: 0 cm, 0 Inch) Height, Inches : 75 Inch(Converted to: 6 ft 3 Inch, 190.50 cm) Clinical Height : 190.5 cm Weight Source : Standing scale Weight Entry Format : [place] Clinical Dosing Weight : 94.68 kg Weight, Pounds : 208.3 lb Body Surface Area (BSA) : 2.23 m2 Body Mass Index : 26.1 kg/m2 (HI) [place] Body Weight : 83 kg Faiht Zendejas, Nurse Hazardous Waste Technician - 05/13/2019 10:06 EDT Health Histories Implant/Device Type, Premises Technician and Model : none Faith Zendejas Nurse Hazardous Waste Technician - 05/13/2019 10:06 EDT Smoking Status : 5-9 cigarettes (between 1/4 to 1/2 pack)/day in last 30 days Smokeless Tobacco Status : Never Desires Tobacco Cessation Medication : No Reason for No Tobacco Cessation Medication : Refuses FDA approved medications RENNY WING RN - 05/12/2019 15:21 EDT Social History (As Of: 05/13/2019 10:08:42 EDT) Tobacco: Use in Last 12 Months: [...] Region : No Tuberculosis Symptoms : None RENNY WING RN - 05/12/2019 15:21 EDT Anesthesia/Transfusion History Family History of Anesthesia Reaction : No prior transfusion(s) Transfusion History : Prior anesthesia without reaction Family History of Anesthesia Reaction : None RENNY WING RN - 05/12/2019 15:21 EDT Advance Directive Patient has Advance Directive *Q : No, patient refuses Advance Directive information RENNY WING RN - 05/12/2019 15:21 EDT Psychosocial History Do You Have a History of the Following? : Patient denies history Currently in Unsafe Situation : No Tried to Harm Yourself in the Past? : No Thoughts of Harming/Killing Yourself : No RENNY WING RN - 05/12/2019 15:21 EDT General Info Support Person/Pt Rep Name : sly hernandez Support Person/Pt Rep Contact Information : [phone] spouse Want Family/Rep/Phys Notified of Admit : No Emergency Contact #1 : none Emergency Contact #1 Phone Number : none Emergency Contact #1 Relationship : none Emergency Contact #2 : none Emergency Contact #2 Phone Number : none Emergency Contact #2 Relationship : none Faith Zendejas, Nurse Hazardous Waste Technician - 05/13/2019 10:06 EDT Primary Language : Beninese Preferred Communication Mode : Verbal Communication Barrier : None RENNY WING RN - 05/12/2019 15:21 EDT Drew Scale Drew Sensory Perception : No impairment Drew Moisture : Rarely moist Drew Activity : Walks occasionally Drew Mobility : Slightly limited Drew Nutrition : Adequate Drew Friction and Shear : No apparent problem Drew Score : 20 Faith Zendejas, Nurse Hazardous Waste Technician - 05/13/2019 10:06 EDT Sleep Apnea Risk Assmt Hx of [...] Sleep Apnea Risk Level Score : 3 Faith Zendejas, Nurse Hazardous Waste Technician - 05/13/2019 10:06 EDT documented in this encounter Plan of Treatment Not on file documented as of this encounter Visit Diagnoses Not on filedocumented in this encounter Care Teams Registered Nurse Cardiac Telemetry Relationship Specialty Start Date End Date Anabel Garcia APRN [facility]. [facility] [address], [place] [address] PCP - General Family Medicine 01/10/23 Power Arreguin MD [address] [place] [address] Medical Oncologist Hematology and Oncology 10/02/22 Nataliya Montana, PA-C [address] [place] [address] Physician Counter Cutter Oncology 10/02/22 Estelle Navarro, RN Nurse Navigator Oncology 11/29/22 Breann Dalton, RN Registered Nurse Oncology 11/29/22 documented as of this encounter
--- OUTSIDE RECORDS SUMMARY | 2025-05-19 13:18 | XMS_ITS | Encounter Summary ---
Author Organization [employer] ([place], [place], [place], [place]) Address [address] [place] [address] Care Team Providers Care Lamp Inspector Name Role Phone Power Arreguin MD Unavailable Nataliya Montana PA-C Unavailable [phone] Estelle Navarro RN Unavailable Unavailable Breann Dalton RN Unavailable Unavailable Anabel Garcia APRN Primary Care Provider [phone] Encounter Details Date Type Department Care Team (Late st Contact Info) Description 05/13/2019 Transcribed Document [facility] [place] [address] [place] [address] ProviderGene MD [address] [place] [address] Social History Tobacco Use Types Packs/Day Years Used Date Smoking Tobacco: Never Assessed Sex and Gender Information Value Date Recorded Sex Assigned at Not on file Legal Sex Male 5:26 PM CDT Gender Identity Not on file Sexual Orientation Not on file documented as of this encounter Miscellaneous Notes * Cerner Conversion Note - Gene Lane MD - 05/13/2019 4:19 PM CDT [facility] 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 , _ Notify Provider of: Complications and concerns. If you have an emergency call 911. Wound/Incision Care after Discharge: Keep operative site/wound site clean and dry, _ Discharge Follow Up Instructions: follow-up in 2 weeks.please order a splenic duplex on followup Activity: Discharge Activity: No heavy lifting over 10 lbs, Avoid Strenuous Activity Until: for 1 week Follow-Up Appointments Follow Up with MICHAEL ALANIZ MD-NAVIN When Comments Appointment has been made for may 26, 2019 at 9:00am. DO NOT EAT ANYTHING THE NIGHT BEFORE AFTER MIDNIGHT Where: [address] [place] [address]- x13 Medications What How Much When Instructions Next Dose amlodipine-benazepril (amLODIPine-benazepril 10 mg-20 mg oral capsule) 1 Capsule(s) Oral Every Day ascorbic acid/ chondroitin/ glucosa/ domingo (Glucosamine Chondroitin) 1500mg/1,103mg Oral Every Day beta-carotene (Beta Carotene) 7,500 Microgram(s) Oral Every Day cholecalciferol (Vitamin D3) 2,000 International Units Oral Every Day cyanocobalamin (Vitamin B-12) 500 Microgram(s) Oral Every Day fenofibrate (Triglide 160 mg oral tablet) 1 Tablet(s) Oral Every Day flax (Flax Oil oral capsule) 2 caps Oral Every Day folic acid (folic acid 0.8 mg oral tablet) 1 Tablet(s) Oral Every Day hydroCHLOROthiazide (hydrochlorothiazide) 25 Milligram(s) Oral Every Day levocetirizine (levocetirizine 5 mg oral tablet) 1 Tablet(s) Oral Every Evening multivitamin 1 tablet Oral Every Day Non Formulary (Non Formulary med) Calcium OTC one tablet daily Non Formulary (Non Formulary med) Tumeric and black pepper extract 600mg/ 5mg once daily Non Formulary (Non Formulary med) Potassium OTC 99mg one tablet daily omeprazole 40 Milligram(s) Oral Every Day pyridoxine (Vitamin B6) 100 Milligram(s) Oral Every Day zinc gluconate (zinc (as gluconate) 50 mg oral tablet) 1 Tablet(s) Oral Every Day Continue all prescribed meds as ordered Take your medications faithfully. Do NOT skip [...] Allergies Immunizations This Visit No Immunizations Found Stroke/TIA Instructions Individualized Stroke Risk Factors Individualized Stroke Risk Factors *Q: Dyslipidemia, Hypertension/High blood pressure, Other: History of an aneurysm Stroke/TIA Signs/Symptoms to Report Immediately: Sudden onset difficulty speaking, Sudden onset difficulty understanding speech, Sudden onset change in vision, Sudden onset weakness particulary on one side of the body, Sudden onset numbness/tingling, Sudden severe headache, Sudden dizziness or trouble with gait, Call : EMS activation is crucial Mutually Agreed Upon Goals My LDL Level: My LDL Level: Education Materials Moderate Conscious Sedation, Adult, Care [...] you are awake and alert. ??? Take utui-idk-tuqhsfq and prescription medicines only as told by [...] 05/12/2014 Document Revised: 12/24/2016 Document Reviewed: 11/10/2016 [employer] Interactive Patient Education ?? 2019 [employer] Radial Site Care Refer to this [...] the radial site that usually fades within 1???2 weeks. ??? Blood collecting in the tissue (hematoma) that may be painful to the touch. It should usually decrease in size and tenderness within 1???2 weeks. Follow these instructions at home: ??? Take medicines only as directed by your health care provider. ??? You may shower 24???48 hours after the procedure or as directed [...] 08/24/2011 Document Revised: 12/27/2016 Document Reviewed: 02/07/2015 [employer] Interactive Patient Education ?? 2019 [employer] Transradial Angiogram Transradial angiogram is an imaging [...] including vitamins, herbs, eye drops, creams, and egdc-erm-mhssgrm medicines. ??? Any problems you or family [...] 04/15/2013 Document Revised: 03/24/2017 Document Reviewed: 06/25/2016 [employer] Interactive Patient Education ?? 2019 [employer]. Emergency Awareness and Preventative Care STROKE is [...] Assistance with quitting is available by contacting 9-373-SYFVNOW. This is a free resource providing counseling, support, and referral. Or you may contact your personal physician. [place] Suicide Prevention Lifeline: The National Suicide Prevention [...] This Visit (last charted value for your 05/13/2019 visit) Hematology 05/13/2019 10:13 AM Hemoglobin POC: 15.3 Gram/dL -- Normal range between ( 12.0 and 17.0 ) Hematocrit POC: 45.0 % -- Normal range between ( 38.0 and 51.0 ) General Chemistry 05/13/2019 10:13 AM eGFR : 67 mL/min/1.73m2 eGFR NonAfrican: 55 mL/min/1.73m2 Sodium POC: 140 mmol/L -- Normal range between ( 138 and 146 ) Ca Ioniz POC: 1.22 mmol/L -- Normal range between ( 1.12 and 1.32 ) Potassium POC: 3.9 mmol/L -- Normal range between ( 3.5 and 4.9 ) Creatinine POC: 1.3 mg/dL -- Normal range between ( 0.6 and 1.3 ) BUN POC: 26 mg/dL -- Normal range between ( 8 and 26 ) CO2 POC: 28.0 mmol/L -- Normal range between ( 24.0 and 29.0 ) Chloride POC: 104 mmol/L -- Normal range between ( 98 and 109 ) Glucose POC: 117 mg/dL -- Normal range between ( 70 and 105 ) Anion Gap POC: 12.0 mmol/L -- Normal range between ( 10.0 and 20.0 ) Patient Name:MEME ROSE I have received and understand this information and was given the opportunity to ask questions. Patient/Ticker Maintainer Name: Patient/Ticker Maintainer Signature: Relationship to Patient: Clinician/Hospital Ticker Maintainer Signature: Date: documented in this encounter Plan of Treatment Not on file documented as of this encounter Visit Diagnoses Not on filedocumented in this encounter Care Teams Lamp Inspector Relationship Specialty Start Date End Date Anabel Garcia APRN [address] [place] [address] PCP - General Family Medicine 01/10/23 Power Arreguin MD [address] [place] [address] Medical Oncologist Hematology and Oncology 10/02/22 Nataliya Montana, PA-C [address] [facility] [address] [place], [place] [id number] Physician Service Consultant Oncology 10/02/22 Estelle Navarro, RN Nurse Navigator Oncology 11/29/22 Breann Dalton, CATIA Registered Nurse Oncology 11/29/22 documented as of this encounter
--- OUTSIDE RECORDS SUMMARY | 2025-05-19 13:18 | XMS_ITS | Encounter Summary ---
Author Organization [employer] ([place], [place], [place]) Address [address] [place] [address] Care Team Providers Care [employer] Combat Skills Name Role Phone Power Arreguin MD Unavailable Nataliya Montana PA-C Unavailable [phone] Estelle Navarro RN Unavailable Unavailable Breann Dalton RN Unavailable Unavailable Anabel Garcia APRN Primary Care Provider Encounter Details Date Type Department Care Team (Late st Contact Info) Description 05/13/2019 Transcribed Document [facility] Family Medicine [address] [place] [address] ProviderGene MD [address] [place] [address] Social History Tobacco Use Types Packs/Day Years Used Date Smoking Tobacco: Never Assessed Sex and Gender Information Value Date Recorded Sex Assigned at Not on file Legal Sex Male 5:26 PM CDT Gender Identity Not on file Sexual Orientation Not on file documented as of this encounter Miscellaneous Notes * Cerner Conversion Note - Gene Lane MD - 05/13/2019 4:17 PM CDT Nursing Discharge Summary Entered On: 05/13/2019 16:18 EDT Performed On: 05/13/2019 16:17 EDT by LUDA BRYANT offset proof press operator Documentation Discharge Date/Time : 05/13/2019 16:17 EDT Patient Disposition, General : Discharge Discharge To : Home with ambulatory/outpatient follow-up Mode Of Departure, General Discharge : Private vehicle Accompanied By, Discharge : Spouse IV Discontinued : Yes Personal Belongings With Patient : Yes Patient Education Completed : Yes Teaching Method : Demonstration, Explanation Teaching Evaluation : Returns demonstration, Verbalizes understanding LUDA BRYANT, RN - 05/13/2019 16:17 EDT documented in this encounter Plan of Treatment Not on file documented as of this encounter Visit Diagnoses Not on filedocumented in this encounter Care Teams [employer] Combat Skills Relationship Specialty Start Date End Date Anabel Garcia APRN [facility]. [address] [facility] [place] [address] PCP - General Family Medicine 01/10/23 Power Arreguin MD [address] [address] Medical Oncologist Hematology and Oncology 10/02/22 Nataliya Montana, PA-C [address] [place] [address] [address] [place] [address] Physician Drop Shipment Clerk Oncology 10/02/22 Estelle Navarro, RN Nurse Navigator Oncology 11/29/22 Breann Dalton, RN Registered Nurse Oncology 11/29/22 documented as of this encounter
--- OUTSIDE RECORDS SUMMARY | 2025-05-19 13:18 | XMS_ITS | Clinical Summary ---
Author Organization [facility] Address [address] [facility], [address] [place] [address] Care Team Providers Care Hypnotherapist Name Role Phone JoseAnabel JHOANA - ENGINE LATHE SET UP OPERATOR TOOL Primary Care Provider Allergies Active Allergy Reactions Criticality Noted Date Comments Tetanus Toxoid-Containing Vaccines Hives 0 11/13/2018 Medications amLODIPine-shannan zepril (LOTREL) 10-20 MG per capsule Take 1 capsule by mouth daily Active fenofibrate 160 MG tablet Take 160 mg by mouth daily Active ALLOPURINOL PO Take by mouth Active omeprazole (PRILOSEC) 20 MG delayed release capsule Take 40 mg by mouth daily Active levocetirizine (XYZAL) 5 MG tablet Take 5 mg by mouth nightly Active hydrochlorothia zide (HYDRODIURIL) 25 MG tablet Take 25 mg by mouth daily Active Potassium 99 MG TABS Take by mouth Active Calcium Carb-Cholecalci ferol (CALCIUM 1000 + D PO) Take by mouth Active Glucosamine-Cho ndroit-Vit C-Mn (GLUCOSAMINE CHONDR 1500 COMPLX) CAPS Take by mouth Active Multiple Vitamins-Minera ls (THERAPEUTIC MULTIVITAMIN-DC NERALS) tablet Take 1 tablet by mouth daily Active Cyanocobalamin (VITAMIN B 12 PO) Take 500 mcg by mouth daily Active vitamin A 7500 units capsule Take 7,500 Units by mouth daily Active zinc gluconate 50 MG tablet Take 50 mg by mouth daily Active Cholecalciferol (VITAMIN D3) 3000 units TABS Take by mouth Active vitamin B-6 (PYRIDOXINE) 50 MG tablet Take 50 mg by mouth daily Active Folic Acid 0.8 MG CAPS Take by mouth Active Flaxseed, Linseed, (FLAXSEED OIL) 1000 MG CAPS Take 3,000 mg by mouth daily Active Black Pepper-Turmeric (TURMERIC COMPLEX/BLACK PEPPER PO) Take by mouth Active Social History Tobacco Use Types Packs/Day [...] Sign Reading Time Taken Comments Blood Pressure 144/69 11/13/2018 6:00 PM EDT Pulse 72 11/13/2018 5:58 PM EDT Temperature 36.7 C (98 F) 11/13/2018 5:06 PM EDT Respiratory Rate 16 11/13/2018 5:58 PM EDT Oxygen Saturation 99% 11/13/2018 5:58 PM EDT Inhaled Oxygen Concentration - - Weight 90.7 kg (200 lb) 11/13/2018 5:06 PM EDT Height 188 cm (6' 2 ) 11/13/2018 5:06 PM EDT Body Mass Index 25.68 11/13/2018 5:06 PM EDT Plan of Treatment Not on file Insurance [employer] Care Teams Hypnotherapist Relationship Specialty Start Date End Date Anabel Garcia APRN - CNP [address] [place] [address] [address] [place] [address] PCP - General Family Medicine 11/13/18
--- OUTSIDE RECORDS SUMMARY | 2025-05-19 13:18 | XMS_ITS | Encounter Summary ---
Author Organization [employer] ([place], [place], [place], [place]) Address [address] [place] [address] Care Team Providers Care Bisque Finisher Name Role Phone Power Arreguin MD Unavailable Nataliya Montana PA-C Unavailable [phone] Estelle Navarro RN Unavailable Unavailable Breann Dalton RN Unavailable Unavailable Anabel Garcia APRN Primary Care Provider Encounter Details Date Type Department Care Team (Late st Contact Info) Description 04/28/2019 Transcribed Document [facility] [place] Family Medicine [address] [place] [address] ProviderGene MD [address] [place] [address] Social History Tobacco Use Types Packs/Day Years Used Date Smoking Tobacco: Never Assessed Sex and Gender Information Value Date Recorded Sex Assigned at Not on file Legal Sex Male 5:26 PM CDT Gender Identity Not on file Sexual Orientation Not on file documented as of this encounter Miscellaneous Notes * Cerner Conversion Note - Gene Lane MD - 04/28/2019 12:57 PM CDT Nursing Discharge Summary Entered On: 04/28/2019 12:58 EDT Performed On: 04/28/2019 12:57 EDT by ANGELIC PENA RN Discharge Documentation Discharge Date/Time : 04/28/2019 16:25 EDT ANGELIC PENA RN - 04/28/2019 16:21 EDT Patient Disposition, General : Discharge Discharge To : Home with ambulatory/outpatient follow-up Mode Of Departure, General Discharge : Private vehicle, Wheelchair Accompanied By, Discharge : Spouse IV Discontinued : Yes Personal Belongings With Patient : Yes Discharge Instructions Reviewed With, Opportunity For Questions Given : Patient, Spouse Patient Education Completed : Yes Teaching Method : Explanation, Printed materials Teaching Evaluation : Returns demonstration, Verbalizes understanding ANGELIC PENA RN - 04/28/2019 12:57 EDT Electronically signed by [facility] Conversion Equine Manager Cerner at 11/20/2022 2:27 PM CDT documented in this encounter Plan of Treatment Not on file documented as of this encounter Visit Diagnoses Not on filedocumented in this encounter Care Teams Bisque Finisher Relationship Specialty Start Date End Date Anabel Garcia APRN [address] [place] [address] PCP - General Family Medicine 01/10/23 Power Arreguin MD [address] [address] Medical Oncologist Hematology and Oncology 10/02/22 Nataliya Montana, PA-C [address] [facility] [address] [place] [address] Physician E Business Project Manager Oncology 10/02/22 Estelle Navarro, RN Nurse Navigator Oncology 11/29/22 Breann Dalton RN Registered Nurse Oncology 11/29/22 documented as of this encounter
[2025-05-19 13:35] LABS: Hematocrit 42.4 % (42.0-52.0); Hemoglobin 13.8 g/dL (14.1-18.0); Immature Granulocytes % 0.5 %; Mean Corpuscular HGB Conc 32.5 g/dL (31.8-35.4); Mean Corpuscular Hemoglobin 30.5 pg (27.0-31.2); Mean Corpuscular Volume 93.6 fl (80-94); Nucleated Red Blood Cells % 0 %; Platelet Count 198 K/mm3 (142-424); Red Blood Count 4.53 M/mm3 (4.60-6.20); Red Cell Distribution Width-SD 48.1 fL; White Blood Count 6.6 K/mm3 (4.8-10.8)
== END 2025-05-19 23:59 | disposition home or self-care (01) ==
LOC: LAB 13:15
PROVIDERS: PCP Counselor Professional; Visit Provider Internal Medicine Medical Oncology
DX: C82.90 Follicular lymphoma, unspecified, unspecified site (principal)
CPT/HCPCS: 36415; 85025